=== PATIENT | female | born 1930 | race Caucasian/White ===

== ENCOUNTER 2017-11-05 16:15 | Emergency (ER) | payer MEDICARE ==
[2017-11-05 17:11] VITALS: BP 123/97
[2017-11-05] MEDS ORDERED: cefTRIAXone 1,000 MG VIAL IVPUSH SCH (17:15)
[2017-11-05] MEDS ORDERED: Sodium Chloride 0.9% 10 ML Syringe FLUSH PRN (17:19)
--- NOTE | 2017-11-05 17:37 | EDM.PDOC ---
ED HPI GENERAL MEDICAL PROBLEM - General Chief Complaint: Cardiovascular Problem Stated Complaint: PAIN Time Seen by Provider: 11/05/17 16:15 Source of Information: Reports: Patient, Family History Limitations: Reports: No Limitations - History of Present Illness INITIAL COMMENTS - FREE TEXT/NARRATIVE: c/o weak and dysuria x 4d pt went to clinic to PCP Dr Cardoza, he noted ST at 140 on EKG with SBP 84, however BP 118/72 here, HR is still ST 140 here on EKG with LVH and old IWMI pt alert, denies sxs except dysuria and frequency, no f/c/d, no sob, no n/v, no CP had a UTI 4-5m ago tx by Dr Cardoza denies prior CV problems good appetite, age bfast and lunch today - Related Data Allergies Allergy/AdvReac Type Severity Reaction Status Date / Time ciprofloxacin Allergy Dizziness Verified 11/05/17 16:38 EGGS Allergy Nausea and Uncoded 11/05/17 16:38 Vomiting Home Meds: Home Meds Lisinopril [Prinivil] 5 mg PO DAILY 06/19/13 [History] Methimazole [Tapazole] 15 mg PO DAILY 06/19/13 [History] Omeprazole 20 mg PO BIDAC 06/19/13 [History] Propranolol [Inderal] 20 mg PO TID 06/19/13 [History] Acetaminophen [Tylenol] 1,200 mg PO BID 11/05/17 [History] ED ROS GENERAL - Review of Systems Review Of Systems: See Below Constitutional: Reports: No Symptoms, Weakness, Decreased Appetite. Denies: Fever, Chills HEENT: Reports: No Symptoms Respiratory: Reports: No Symptoms Cardiovascular: Reports: No Symptoms Endocrine: Reports: No Symptoms GI/Abdominal: Reports: No Symptoms : Reports: Dysuria, Frequency, Urgency. Denies: Hematuria Musculoskeletal: Reports: No Symptoms Skin: Reports: No Symptoms Neurological: Reports: No Symptoms Psychiatric: Reports: No Symptoms Hematologic/Lymphatic: Reports: No Symptoms Immunologic: Reports: No Symptoms ED EXAM, GENERAL - Physical Exam Exam: See Below Exam Limited By: No Limitations General Appearance: Alert, WD/WN, No Apparent Distress, Other (alert, pleasant, talkative, NAD despite tachy, nonill, cooperative) Eye Exam: Bilateral Eye: Normal Inspection Ears: Normal External Exam Nose: Normal Inspection, Normal Mucosa, No Blood Throat/Mouth: Normal Inspection, Normal Lips, Normal Teeth, Normal Gums, Normal Oropharynx, Normal Voice, No Airway Compromise Head: Atraumatic, Normocephalic Neck: Normal Inspection, Supple, Non-Tender, Full Range of Motion. No: Lymphadenopathy (R), Lymphadenopathy (L) Respiratory/Chest: No Respiratory Distress, Lungs Clear, Normal Breath Sounds, No Accessory Muscle Use, Chest Non-Tender Cardiovascular: Regular Rate, Rhythm, No Edema, No Gallop, No JVD, No Murmur, No Rub, Tachycardia, Other (slight heave at PMI which is MCL at 6th ICS). No: Gallop/S3, Gallop/S4 GI/Abdominal: Normal Bowel Sounds, Soft, Non-Tender, No Organomegaly, No Distention, No Mass, Other (no flank tender, no suprapubic tender) Back Exam: Normal Inspection, Full Range of Motion, NT Extremities: Normal Inspection, Normal Range of Motion, Non-Tender, No Pedal Edema, Mottled Neurological: Alert, Oriented, Normal Cognition, No Motor/Sensory Deficits Psychiatric: Normal Affect, Normal Mood Skin Exam: Warm, Dry, Intact, Normal Color, No Rash Lymphatic: No Adenopathy Course - Vital Signs Last Recorded V/S: Last Vital Signs Temp 36.4 C 11/05/17 16:20 Pulse 139 H 11/05/17 16:20 Resp 16 11/05/17 16:20 BP 123/97 H 11/05/17 16:20 Pulse Ox 94 L 11/05/17 16:20 - Orders/Labs/Meds Orders: Active Orders 24 hr Category Date Time Status EKG Documentation Completion [RC] ASDIRECTED Care 11/05/17 17:14 Active Chest 1V Frontal [CR] Stat Exams 11/05/17 17:05 Taken CULTURE BLOOD [BC] Stat Lab 11/05/17 17:30 Received Sodium Chloride 0.9% [Normal Saline] 1,000 ml Med 11/05/17 17:45 Active IV ASDIRECTED Sodium Chloride 0.9% [Saline Flush] Med 11/05/17 17:19 Active 10 ml FLUSH ASDIRECTED PRN cefTRIAXone [Rocephin] Med 11/05/17 17:15 Active 1,000 mg IVPUSH Q24H Saline Lock Insert [OM.PC] Routine Oth 11/05/17 17:19 Ordered EKG 12 Lead [EK] Routine Ther 11/05/17 17:13 Ordered Medication Orders Ceftriaxone Sodium (Rocephin) 1,000 mg IVPUSH Q24H [facility] Last Admin: 11/05/17 17:38 Dose: 1,000 mg Sodium Chloride (Normal Saline) 1,000 mls @ 999 mls/hr IV ASDIRECTED LIZ Last Admin: 11/05/17 19:05 Dose: 999 mls/hr Infusion: 11/05/17 18:39 Dose: 999 mls/hr Admin: 11/05/17 17:38 Dose: 999 mls/hr Sodium Chloride (Saline Flush) 10 ml FLUSH ASDIRECTED PRN PRN Reason: Keep Vein Open Labs: Laboratory Tests 11/05/17 11/05/17 11/05/17 Range/Units 17:30 17:30 17:30 WBC 8.3 (4.5-12.0) X10-3/uL RBC 4.47 (3.23-5.20) x10(6)uL Hgb 13.4 (11.5-15.5) g/dL Hct 40.5 (30.0-51.3) % MCV 90.6 (80-96) fL MCH 29.9 (27.7-33.6) pg MCHC 33.0 (32.2-35.4) g/dL RDW 13.8 (11.5-15.5) % Plt Count 255 (125-369) X10(3)uL MPV 8.1 (7.4-10.4) fL Neut % (Auto) 60.4 (46-82) % Lymph % (Auto) 27.8 (13-37) % Wetzel % (Auto) 9.5 (4-12) % Eos % (Auto) 2 (1.0-5.0) % Baso % (Auto) 1 (0-2) % Neut # (Auto) 5.0 (1.6-8.3) # Lymph # (Auto) 2.3 (0.6-5.0) # Wetzel # (Auto) 0.8 (0.0-1.3) # Eos # (Auto) 0.1 (0.0-0.8) # Baso # (Auto) 0.1 (0.0-0.2) # Sodium 143 (135-145) mmol/L Potassium 4.3 (3.5-5.3) mmol/L Chloride 108 (100-110) mmol/L Carbon Dioxide 23 (21-32) mmol/L BUN 29 H (7-18) mg/dL Creatinine 0.9 (0.55-1.02) mg/dL Est Cr Clr Drug Dosing 36.80 mL/min Estimated GFR (MDRD) 60 (>60) BUN/Creatinine Ratio 32.2 H (9-20) Glucose 139 H (80-116) mg/dL Lactic Acid (0.4-2.2) mmol/L Calcium 9.0 (8.6-10.2) mg/dL Magnesium (1.8-2.5) mg/dL Total Bilirubin 0.3 (0.1-1.3) mg/dL AST 20 (5-25) IU/L ALT 23 (12-36) U/L Alkaline Phosphatase 109 (56-112) IU/L Troponin I < 0.017 L (<0.017-0.056) ng/mL C-Reactive Protein 1.3 H (0.5-0.9) mg/dL NT-Pro-B Natriuret Pep 3229 H* (<=450) pg/mL Total Protein 7.4 (6.0-8.0) g/dL Albumin 3.2 (3.2-4.6) g/dL Globulin 4.2 g/dL Albumin/Globulin Ratio 0.8 TSH, Ultra Sensitive 2.83 (0.36-3.74) IU/mL 11/05/17 11/05/17 Range/Units 17:30 17:30 WBC (4.5-12.0) X10-3/uL RBC (3.23-5.20) x10(6)uL Hgb (11.5-15.5) g/dL Hct (30.0-51.3) % MCV (80-96) fL MCH (27.7-33.6) pg MCHC (32.2-35.4) g/dL RDW (11.5-15.5) % Plt Count (125-369) X10(3)uL MPV (7.4-10.4) fL Neut % (Auto) (46-82) % Lymph % (Auto) (13-37) % Wetzel % (Auto) (4-12) % Eos % (Auto) (1.0-5.0) % Baso % (Auto) (0-2) % Neut # (Auto) (1.6-8.3) # Lymph # (Auto) (0.6-5.0) # Wetzel # (Auto) (0.0-1.3) # Eos # (Auto) (0.0-0.8) # Baso # (Auto) (0.0-0.2) # Sodium (135-145) mmol/L Potassium (3.5-5.3) mmol/L Chloride (100-110) mmol/L Carbon Dioxide (21-32) mmol/L BUN (7-18) mg/dL Creatinine (0.55-1.02) mg/dL Est Cr Clr Drug Dosing mL/min Estimated GFR (MDRD) (>60) BUN/Creatinine Ratio (9-20) Glucose (80-116) mg/dL Lactic Acid 1.0 (0.4-2.2) mmol/L Calcium (8.6-10.2) mg/dL Magnesium 1.9 (1.8-2.5) mg/dL Total Bilirubin (0.1-1.3) mg/dL AST (5-25) IU/L ALT (12-36) U/L Alkaline Phosphatase (56-112) IU/L Troponin I (<0.017-0.056) ng/mL C-Reactive Protein (0.5-0.9) mg/dL NT-Pro-B Natriuret Pep (<=450) pg/mL Total Protein (6.0-8.0) g/dL Albumin (3.2-4.6) g/dL Globulin g/dL Albumin/Globulin Ratio TSH, Ultra Sensitive (0.36-3.74) IU/mL Meds: Medications Generic Name Dose Route Start Last Admin Trade Name Freq PRN Reason Stop Dose Admin Ceftriaxone Sodium 1,000 mg 11/05/17 17:15 11/05/17 17:38 Rocephin IVPUSH 1,000 mg Q24H LIZ Administration Sodium Chloride 1,000 mls @ 999 mls/hr 11/05/17 17:45 03/16/18 19:05 Normal Saline IV 999 mls/hr ASDIRECTED LIZ Administration Sodium Chloride 10 ml 11/05/17 17:19 Saline Flush FLUSH ASDIRECTED PRN Keep Vein Open - Re-Assessments/Exams Free Text/Narrative Re-Assessment/Exam: 11/05/17 17:43 CxR, 1V, no infiltrate, possible borderline cardiomegaly, R angle clear, L angle obscured by heart 11/05/17 19:33 no beds available here, d/w Dr Evans hospitalist at [facility] who accepted her in admission to observation bed, HR did decrease to 117 after 1.5 liters altho it is now 138 again, remains sinus, trop neg, inc'd BNP c/w demand ischemia no clinical evidence of sepsis or pyelo, BC x 2 pending here, UC pending at clinic may need an echo, no prior CV hx, yet EKG (no comparison) shows LVH and old IWMI Departure - Departure Time of Disposition: 19:22 Disposition: DC/Tfer to Acute Hospital 02 Reason for Transfer *Q: Other Condition: Good Clinical Impression: Sinus tachycardia, Mild dehydration, Urinary tract infection, CHF exacerbation , Elevated brain natriuretic peptide (BNP) level, Prerenal azotemia, Hyperglycemia Referrals: David Scott MD [Primary Care Provider] - Forms: ED Department Discharge - My Orders Last 24 Hours: My Active Orders 11/05/17 17:05 Chest 1V Frontal [CR] Stat 11/05/17 17:13 EKG 12 Lead [EK] Routine 11/05/17 17:14 EKG Documentation Completion [RC] ASDIRECTED 11/05/17 17:15 cefTRIAXone [Rocephin] 1,000 mg IVPUSH Q24H 11/05/17 17:19 Sodium Chloride 0.9% [Saline Flush] 10 ml FLUSH ASDIRECTED PRN Saline Lock Insert [OM.PC] Routine 11/05/17 17:30 CULTURE BLOOD [BC] Stat 11/05/17 17:45 Sodium Chloride 0.9% [Normal Saline] 1,000 ml IV ASDIRECTED - Assessment/Plan Last 24 Hours: My Active Orders 11/05/17 17:05 Chest 1V Frontal [CR] Stat 11/05/17 17:13 EKG 12 Lead [EK] Routine 11/05/17 17:14 EKG Documentation Completion [RC] ASDIRECTED 11/05/17 17:15 cefTRIAXone [Rocephin] 1,000 mg IVPUSH Q24H 11/05/17 17:19 Sodium Chloride 0.9% [Saline Flush] 10 ml FLUSH ASDIRECTED PRN Saline Lock Insert [OM.PC] Routine 11/05/17 17:30 CULTURE BLOOD [BC] Stat 11/05/17 17:45 Sodium Chloride 0.9% [Normal Saline] 1,000 ml IV ASDIRECTED
[2017-11-05] MEDS: Sodium Chloride 0.9% 1,000 ML IV SCH ×2 (17:38→19:05)
--- NOTE | 2017-11-08 16:23 | CR ---
INDICATION: Tachycardia 140. No chest pain. No shortness of breath. CHEST: Portable AP upright view of the chest, 11/05/2017, was compared with 08/2008 PA view, and revealed the heart to be enlarged. The aorta is tortuous, possibly with some minimal calcification in the arch. Overlying EKG leads are noted. The lungs appear to be somewhat hyperaerated with somewhat flattened diaphragm leaves, suggesting the possibility of COPD - correlate clinically. Slightly heavy markings at the left lung base make it difficult to exclude minimal fibrosis or linear atelectasis or even a minimal patchy bronchopneumonia. No gross consolidating pneumonia or effusion was seen, however. IMPRESSION: 1. No definite acute process, but difficult to exclude minimal patchy bronchopneumonia at the left costophrenic angle - lung base. 2. ASHD with cardiomegaly. 3. Probable COPD. MTDD
== END 2017-11-05 20:25 ==
LOC: FB.ED 16:15
DX: N39.0 Urinary tract infection, site not specified (principal); R00.0 Tachycardia, unspecified; E86.0 Dehydration; I50.9 Heart failure, unspecified; R73.9 Hyperglycemia, unspecified; Z91.012 Allergy to eggs; Z88.1 Allergy status to other antibiotic agents; Z79.899 Other long term (current) drug therapy
CPT/HCPCS: 36415; 71045; 80053; 83605; 83735; 83880; 84443; 84484; 85025; 86140; 87040; 93005; 96361; 96374; 99285; J0696; J7040

== ENCOUNTER 2018-01-18 12:05 | Emergency (ER) | payer MEDICARE ==
--- NOTE | 2018-01-18 12:18 | EDM.PDOC ---
ED HPI GENERAL MEDICAL PROBLEM - General Stated Complaint: DIZZINESS SOB Time Seen by Provider: 01/18/18 12:05 Source of Information: Reports: Patient, Family History Limitations: Reports: No Limitations - History of Present Illness INITIAL COMMENTS - FREE TEXT/NARRATIVE: 87 y.o.w.f came with her son due to gen body ache, h/a chest pain, back pain, neck pain etc. She is scheduled for a electrophysiological study tomorrow. Reason? No N/V/D no chest pain. She just does not fee 'right" No family was in the room. Pt is a poor historian. BP 160/92 RR 18 Pulse ox 98% on RA pulse 77 Temp 36.6 Onset Date: 01/18/18 Onset Time: 06:00 Duration: Hour(s):, Intermittent, Improving Location: Reports: Generalized Quality: Reports: Ache, Dull Severity: Mild Improves with: Reports: Rest Worsens with: Reports: Movement Context: Reports: Other (Pt as a fib.) Associated Symptoms: Reports: No Other Symptoms - Related Data Allergies Allergy/AdvReac Type Severity Reaction Status Date / Time ciprofloxacin Allergy Dizziness Verified 01/18/18 12:26 EGGS Allergy Nausea and Uncoded 01/18/18 12:26 Vomiting Home Meds: Home Meds Methimazole [Tapazole] 15 mg PO DAILY 06/19/13 [History] Omeprazole 20 mg PO BIDAC 06/19/13 [History] Propranolol [Inderal] 20 mg PO TID 06/19/13 [History] Acetaminophen [Tylenol] 1,200 mg PO BID 11/05/17 [History] Past Medical History HEENT History: Reports: Cataract, Hard of Hearing, Impaired Vision Cardiovascular History: Reports: High Cholesterol Genitourinary History: Reports: UTI, Recurrent Other Genitourinary History: Pt has had frequent urinary tract infections. [employer] History: Reports: Musculoskeletal History: Reports: Arthritis, Osteoarthritis Endocrine/Metabolic History: Reports: Hyperthyroidism, Hypothyroidism Oncologic (Cancer) History: Reports: Breast - Infectious Disease History Infectious Disease History: Reports: Chicken Pox, Measles, Mumps, Pertussis ( Whooping Cough) - Past Surgical History Female Surgical History: Reports: Breast Biopsy, Hysterectomy, Mastectomy Other Female Surgeries/Procedures: Pt had mastecomy 1996 and in 2000. Social & Family History - Caffeine Use Caffeine Use: Reports: Coffee ED ROS GENERAL - Review of Systems Review Of Systems: See Below Constitutional: Reports: No Symptoms HEENT: Reports: No Symptoms Respiratory: Reports: Shortness of Breath Cardiovascular: Reports: Palpitations Endocrine: Reports: No Symptoms GI/Abdominal: Reports: No Symptoms : Reports: No Symptoms Musculoskeletal: Reports: No Symptoms Skin: Reports: No Symptoms Neurological: Reports: No Symptoms Psychiatric: Reports: No Symptoms Hematologic/Lymphatic: Reports: No Symptoms Immunologic: Reports: No Symptoms ED EXAM, GENERAL - Physical Exam Exam: See Below Exam Limited By: No Limitations General Appearance: Alert, WD/WN, No Apparent Distress Eye Exam: Bilateral Eye: Normal Inspection Ears: Normal External Exam, Normal Canal Ear Exam: Bilateral Ear: Auricle Normal Nose: Normal Inspection, Normal Mucosa, No Blood Throat/Mouth: Normal Inspection, Normal Lips, Normal Gums, Normal Voice, No Airway Compromise Head: Atraumatic, Normocephalic Neck: Normal Inspection, Supple, Non-Tender Respiratory/Chest: No Respiratory Distress, Lungs Clear (poor insp effort), No Accessory Muscle Use, Chest Non-Tender Cardiovascular: Normal Peripheral Pulses, Regular Rate, Rhythm Peripheral Pulses: 1+: Brachial (L) GI/Abdominal: Normal Bowel Sounds, Soft, Non-Tender, No Organomegaly, No Distention, No Abnormal Bruit, No Mass (Female) Exam: Deferred Rectal (Female) Exam: Deferred Back Exam: Normal Inspection, Full Range of Motion Extremities: Normal Inspection, Normal Range of Motion, Non-Tender, No Pedal Edema, Normal Capillary Refill Neurological: Alert, Oriented, CN II-XII Intact, Normal Cognition, Other (pt is wheelchair bound) Psychiatric: Normal Affect, Normal Mood Skin Exam: Warm, Dry, Intact, Normal Color, No Rash Lymphatic: No Adenopathy EKG INTERPRETATION EKG Date: 01/18/18 Time: 12:35 Rhythm: NSR Rate (Beats/Min): 68 [place]: Normal P-Wave: Present QRS: Normal ST-T: Normal QT: Normal Comparison: NA - No Prior EKG Course - Vital Signs Text/Narrative:: 87 y.o.w.f came with her son due to gen body ache, h/a chest pain, back pain, neck pain etc. She is scheduled for a electrophysiological study tomorrow. Reason? No N/V/D no chest pain. She just does not fee 'right" No family was in the room. Pt is a poor historian. BP 160/92 RR 18 Pulse ox 98% on RA pulse 77 Temp 36.6 PE: 87 y.o.w.f came to the ed with her son because she "does not feel right" Scheduled for an electophysiological study. No Nystagmus labs: CBC nl BUN 24 Cr 0.8 GFR 60 BUN/CR ration elevated BNP 1988 Glc 114 Imaging: CXR: NAD Impression: Nonspecific complains, nonspecific dizziness Tx: None Reexam: Pt felt fine on D/C, was ambulating fine with walker. Plan: D/C with instructions Last Recorded V/S: Last Vital Signs Temp 36.4 C 01/18/18 15:20 Pulse 70 01/18/18 15:20 Resp 18 01/18/18 15:20 BP 157/92 H 01/18/18 15:20 Pulse Ox 100 01/18/18 15:20 - Orders/Labs/Meds Orders: Active Orders 24 hr Category Date Time Status UA W/MICROSCOPIC [URIN] Stat Lab 01/18/18 13:50 Ordered EKG 12 Lead [EK] Routine Ther 01/18/18 12:18 Ordered Labs: Laboratory Tests 01/18/18 01/18/18 01/18/18 Range/Units 13:00 13:00 13:00 WBC 7.3 (4.5-12.0) X10-3/uL RBC 4.05 (3.23-5.20) x10(6)uL Hgb 12.4 (11.5-15.5) g/dL Hct 38.0 (30.0-51.3) % MCV 93.7 (80-96) fL MCH 30.6 (27.7-33.6) pg MCHC 32.7 (32.2-35.4) g/dL RDW 13.2 (11.5-15.5) % Plt Count 167 (125-369) X10(3)uL MPV 8.2 (7.4-10.4) fL Neut % (Auto) 57.9 (46-82) % Lymph % (Auto) 30.8 (13-37) % Meagher % (Auto) 9.5 (4-12) % Eos % (Auto) 1 (1.0-5.0) % Baso % (Auto) 1 (0-2) % Neut # (Auto) 4.2 (1.6-8.3) # Lymph # (Auto) 2.3 (0.6-5.0) # Meagher # (Auto) 0.7 (0.0-1.3) # Eos # (Auto) 0.1 (0.0-0.8) # Baso # (Auto) 0.0 (0.0-0.2) # Sodium 141 (135-145) mmol/L Potassium 4.1 (3.5-5.3) mmol/L Chloride 107 (100-110) mmol/L Carbon Dioxide 24 (21-32) mmol/L BUN 23 H (7-18) mg/dL Creatinine 0.9 (0.55-1.02) mg/dL Est Cr Clr Drug Dosing TNP Estimated GFR (MDRD) 60 (>60) BUN/Creatinine Ratio 25.6 H (9-20) Glucose 114 (80-116) mg/dL Calcium 8.8 (8.6-10.2) mg/dL NT-Pro-B Natriuret Pep 1989 H* (<=450) pg/mL Urine Color (YELLOW) Urine Appearance (CLEAR) Urine pH (5.0-6.5) Ur Specific Hazard (1.010-1.025) Urine Protein (NEGATIVE) mg/dL Urine Glucose (UA) (NEGATIVE) mg/dL Urine Ketones (NEGATIVE) mg/dL Urine Occult Blood (NEGATIVE) Urine Nitrite (NEGATIVE) Urine Bilirubin (NEGATIVE) Urine Urobilinogen (NEGATIVE) mg/dL Ur Leukocyte Esterase (NEGATIVE) Urine WBC (0) Ur Squamous Epith Cells (NS,R,O) Urine Bacteria (NS) 01/18/18 Range/Units 13:50 WBC (4.5-12.0) X10-3/uL RBC (3.23-5.20) x10(6)uL Hgb (11.5-15.5) g/dL Hct (30.0-51.3) % MCV (80-96) fL MCH (27.7-33.6) pg MCHC (32.2-35.4) g/dL RDW (11.5-15.5) % Plt Count (125-369) X10(3)uL MPV (7.4-10.4) fL Neut % (Auto) (46-82) % Lymph % (Auto) (13-37) % Meagher % (Auto) (4-12) % Eos % (Auto) (1.0-5.0) % Baso % (Auto) (0-2) % Neut # (Auto) (1.6-8.3) # Lymph # (Auto) (0.6-5.0) # Meagher # (Auto) (0.0-1.3) # Eos # (Auto) (0.0-0.8) # Baso # (Auto) (0.0-0.2) # Sodium (135-145) mmol/L Potassium (3.5-5.3) mmol/L Chloride (100-110) mmol/L Carbon Dioxide (21-32) mmol/L BUN (7-18) mg/dL Creatinine (0.55-1.02) mg/dL Est Cr Clr Drug Dosing Estimated GFR (MDRD) (>60) BUN/Creatinine Ratio (9-20) Glucose (80-116) mg/dL Calcium (8.6-10.2) mg/dL NT-Pro-B Natriuret Pep (<=450) pg/mL Urine Color Yellow (YELLOW) Urine Appearance Clear (CLEAR) Urine pH 5.0 (5.0-6.5) Ur Specific Hazard 1.010 (1.010-1.025) Urine Protein Negative (NEGATIVE) mg/dL Urine Glucose (UA) Normal (NEGATIVE) mg/dL Urine Ketones Negative (NEGATIVE) mg/dL Urine Occult Blood Negative (NEGATIVE) Urine Nitrite Negative (NEGATIVE) Urine Bilirubin Negative (NEGATIVE) Urine Urobilinogen Normal (NEGATIVE) mg/dL Ur Leukocyte Esterase Negative (NEGATIVE) Urine WBC 0-5 (0) Ur Squamous Epith Cells Few H (NS,R,O) Urine Bacteria Few H (NS) Departure - Departure Time of Disposition: 14:46 Disposition: Home, Self-Care 01 Condition: Good Clinical Impression: Dizziness, nonspecific Instructions: Dizziness, [id number] Referrals: David Scott MD [Primary Care Provider] - Forms: ED Department Discharge Additional Instructions: Please cont your current meds, please f/u with your Doctor tomorrow as scheduled , please come back if your symptoms get worse acutely. - My Orders Last 24 Hours: My Active Orders 01/18/18 12:18 EKG 12 Lead [EK] Routine 01/18/18 13:50 UA W/MICROSCOPIC [URIN] Stat - Assessment/Plan Last 24 Hours: My Active Orders 01/18/18 12:18 EKG 12 Lead [EK] Routine 01/18/18 13:50 UA W/MICROSCOPIC [URIN] Stat
--- NOTE | 2018-01-18 13:25 | CR ---
INDICATION: Short of breath. CHEST: AP upright view of the chest in a wheelchair was obtained 01/18/2018 and compared with 11/05/2017 and 04/23/2009, again revealing the heart to be enlarged in appearance. The aorta is somewhat tortuous with calcification in the arch. Evidence of surgery is noted in the area of the right axilla and right breast. Markings appear similar to the previous study with no definite active infiltrate or effusion. An appearance of hyperaeration and flattened diaphragm leaves suggest COPD. There is question of a mass behind the heart, which could represent a moderately large to large fixed hiatal hernia or other mass and should be correlated clinically. IMPRESSION: 1. No definite acute process but difficult to exclude patchy bronchopneumonia due to heavy markings at the lung bases, partly on the basis of poor inspiration. 2. COPD. 3. Pulmonary fibrosis. 4. ASHD with cardiomegaly. 5. There is suggestion of a mass behind the heart, similar to previous examination, which may represent a large fixed hiatal hernia or other mass and should be correlated clinically. MTDD
[2018-01-18 15:35] VITALS: BP 157/92
== END 2018-01-18 15:20 | disposition home or self-care (01) ==
LOC: FB.ED 12:05
DX: R42 Dizziness and giddiness (principal); Z88.8 Allergy status to other drugs, medicaments and biological substances; Z91.012 Allergy to eggs; Z79.899 Other long term (current) drug therapy
CPT/HCPCS: 36415; 71045; 80048; 81001; 83880; 85025; 93005; 99285

== ENCOUNTER 2019-10-13 13:32 | Inpatient (IN) | payer MEDICARE ==
[2019-10-13] MEDS ORDERED: cefTRIAXone 1 GM in Sodium Chloride 0.9% 50 ML IV SCH (15:00)
[2019-10-13] MEDS ORDERED: Carboxymethylcellulose Sodium 0.5% Ophth Soln 15 ML Bottle EYEBOTH PRN (15:02)
--- NOTE | 2019-10-13 15:11 | PCM.HP.2 ---
H&P History of Present Illness - General Date of Service: 10/13/19 Admit Problem/Dx: Admission Diagnosis/Problem Admission Diagnosis/Problem Atrial fibrillation Source of Information: Patient, Old Records History Limitations: Reports: No Limitations - History of Present Illness Initial Comments - Free Text/Narative: This is an 88-year-old female patient over from the clinic from [facility] physician's emergency medicine physician assistant for pneumonia and rapid atrial fibrillation. The patient states she has been sick for about 2 months getting worse. She was seen in the clinic early this week and diagnosed with pneumonia and put on doxycycline. She came back today she was getting worse and they felt she should be admitted. Her EKG showed rapid A. fib with RVR. Patient states she feels dizzy, weak, palpitations. She denies fever, is chills, runny nose, sore throat, cough. She is short of breath which is more so when she lays down and exert yourself. She says she had a temperature in the clinic but has not really noticed. She had ablation of atrial flutter 2 years ago. Not on any anticoagulation. - Related Data Allergies/Adverse Reactions: Allergies Allergy/AdvReac Type Severity Reaction Status Date / Time ciprofloxacin Allergy Rash Verified 10/13/19 14:55 EGGS Allergy Other Uncoded 10/13/19 14:55 Home Medications: Home Meds Methimazole [Tapazole] 15 mg PO DAILY 06/19/13 [History] Omeprazole 20 mg PO BIDAC 06/19/13 [History] Acetaminophen [Tylenol Arthritis] 650 mg PO BID 10/13/19 [History] Acetaminophen with Codeine [Tylenol with Codeine #3 Tablet] 1 tab PO Q6H PRN [History] Carboxymethylcellulose Sodium [Refresh Tears] 1 drop EYEBOTH TID PRN 10/13/19 [ History] Doxycycline Hyclate 100 mg PO BID 10/13/19 [History] Furosemide [Lasix] 20 mg PO DAILY 10/13/19 [History] Loratadine [Claritin] 10 mg PO DAILY 10/13/19 [History] Mineral Oil/Petrolatum,White [Refresh P.M.] 1 applic EYEBOTH BEDTIME 10/13/19 [ History] Propranolol [Inderal] 80 mg PO BID 10/13/19 [History] Vit C/E/Zn/Coppr/Lutein/Zeaxan [Preservision Areds 2 Softgel] 1 cap PO DAILY [History] amLODIPine [Norvasc] 2.5 mg PO DAILY 10/13/19 [History] lisinopriL [Lisinopril] 10 mg PO DAILY 10/13/19 [History] Past Medical History HEENT History: Reports: Cataract, Hard of Hearing, Impaired Vision Cardiovascular History: Reports: High Cholesterol Respiratory History: Reports: None Genitourinary History: Reports: UTI, Recurrent Other Genitourinary History: Pt has had frequent urinary tract infections. 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 Social & Family History - Caffeine Use Caffeine Use: Reports: Coffee H&P Review of Systems - Review of Systems: Review Of Systems: See Below General: Reports: Weakness, Fatigue HEENT: Reports: No Symptoms Pulmonary: Reports: Shortness of Breath. Denies: Wheezing, Sputum, Hemoptysis Cardiovascular: Reports: Dyspnea on Exertion. Denies: Chest Pain, Edema Gastrointestinal: Reports: No Symptoms Genitourinary: Reports: Incontinence Skin: Reports: No Symptoms Psychiatric: Reports: No Symptoms Neurological: Reports: No Symptoms Hematologic/Lymphatic: Reports: No Symptoms Immunologic: Reports: No Symptoms Exam - Exam Exam: See Below - Vital Signs Vital Signs: Last Vital Signs Temp 97.8 F 10/13/19 13:55 Pulse 117 H 10/13/19 13:55 Resp 16 10/13/19 13:55 BP 134/85 10/13/19 13:55 Pulse Ox 96 10/13/19 13:55 Weight: 144 lb 5 oz - Exam General: Alert, Oriented, Cooperative HEENT: Hearing Intact, Mucosa Moist & [place], Posterior Pharynx Clear, TMs Clear Neck: Supple, Trachea Midline. No: JVD, Thyromegaly Lungs: Normal Respiratory Effort, Crackles (Left base) Cardiovascular: Irregular Rhythm, Tachycardia GI/Abdominal Exam: Normal Bowel Sounds, Soft, Non-Tender, No Organomegaly, No Distention, No Abnormal Bruit, No Mass Back Exam: Normal Inspection, Full Range of Motion Extremities: Pedal Edema Skin: Warm, Dry, Intact Neurological: Normal Speech, Normal Tone Psychiatric: Alert, Normal Affect, Normal Mood Sepsis Event Note - Focused Exam Vital Signs: Vital Signs Temp Pulse Resp BP Pulse Ox 10/13/19 13:55 97.8 F 117 H 16 134/85 96 Date Exam was Performed: 10/13/19 Time Exam was Performed: 15:04 - Problem List (1) Pneumonia SNOMED Code(s): 645816994 ICD Code: J18.9 - PNEUMONIA, UNSPECIFIED ORGANISM Status: Acute Current Visit: Yes (2) Rapid atrial fibrillation SNOMED Code(s): 280861900 ICD Code: I48.91 - UNSPECIFIED ATRIAL FIBRILLATION Status: Acute Current Visit: Yes (3) Palliative care status SNOMED Code(s): 928896770 ICD Code: Z51.5 - ENCOUNTER FOR PALLIATIVE CARE Status: Acute Current Visit: Yes Problem List Initiated/Reviewed/Updated: Yes Orders Last 24hrs: Active Orders 24 hr Category Date Time Status Patient Status [ADT] Routine ADT 10/13/19 14:56 Ordered Ambulate [RC] ASDIRECTED Care 10/13/19 14:56 Ordered Cardiac Monitoring [RC] CONTINUOUS Care 10/13/19 14:57 Ordered EKG Documentation Completion [RC] ASDIRECTED Care 10/13/19 15:04 Ordered Intake and Output [RC] QSHIFT Care 10/13/19 14:57 Ordered May Shower [RC] ASDIRECTED Care 10/13/19 14:56 Ordered Oxygen Therapy [RC] PRN Care 10/13/19 14:56 Ordered Up With Assistance [RC] ASDIRECTED Care 10/13/19 14:56 Ordered VTE/DVT Education [RC] Per Unit Routine Care 10/13/19 14:56 Ordered Vital Signs [RC] Q4HWA Care 10/13/19 14:56 Ordered Regular Diet [DIET] Diet 10/13/19 Dinner Ordered CBC WITH AUTO DIFF [HEME] Routine Lab 10/13/19 14:56 Ordered COMPREHENSIVE METABOLIC PN,CMP [CHEM] Routine Lab 10/13/19 14:56 Ordered CULTURE BLOOD [BC] Urgent Lab 10/13/19 15:00 Ordered CULTURE BLOOD [BC] Urgent Lab 10/13/19 15:00 Ordered INR,PT,PROTHROMBIN TIME [COAG] Routine Lab 10/13/19 14:56 Ordered PRO B-TYPE NATRIUR PEPT,BNPPRO [CHEM] Routine Lab 10/13/19 15:04 Ordered TROPONIN I [CHEM] Routine Lab 10/13/19 14:56 Ordered Acetaminophen [Tylenol Arthritis Pain] Med 10/13/19 21:00 Ordered 650 mg PO BID Acetaminophen/Codeine [Tylenol with Codeine No.3 300MG/ Med 10/13/19 15:02 Ordered 30MG] 1 tab PO Q6H PRN Azithromycin [Zithromax] 250 mg Med 10/14/19 15:15 Ordered Sodium Chloride 0.9% [Normal Saline] 250 ml IV Q24H Azithromycin [Zithromax] 500 mg Med 10/13/19 14:56 Ordered Sodium Chloride 0.9% [Normal Saline (AdvBag)] 250 ml IV ONETIME Carboxymethylcellulose Sodium [Refresh Tears 0.5%] Med 10/13/19 15:02 Ordered 1 drop EYEBOTH TID PRN Enoxaparin [Lovenox] Med 10/13/19 15:00 Ordered 30 mg SUBCUT Q24H Furosemide [Lasix] Med 10/14/19 09:00 Ordered 20 mg PO DAILY Loratadine [Claritin] Med 10/14/19 09:00 Ordered 10 mg PO DAILY Omeprazole [Omeprazole] Med 10/13/19 17:30 Ordered 20 mg PO BIDAC Ondansetron [Zofran ODT] Med 10/13/19 14:56 Ordered 4 mg PO Q4H PRN Propranolol [Inderal] Med 10/13/19 21:00 Ordered 80 mg PO BID Sodium Chloride 0.9% [Saline Flush] Med 10/13/19 14:56 Ordered 10 ml FLUSH ASDIRECTED PRN Vit C/E/Zn/Coppr/Lutein/Zeaxan [Preservision Areds 2 Med 10/14/19 09:00 Ordered Softgel] 1 cap PO DAILY amLODIPine [Norvasc] Med 10/14/19 09:00 Ordered 2.5 mg PO DAILY cefTRIAXone [Rocephin] 1 gm Med 10/13/19 15:00 Ordered Sodium Chloride 0.9% [Normal Saline] 50 ml IV Q24H lisinopriL [Prinivil] Med 10/14/19 09:00 Ordered 10 mg PO DAILY methIMAzole Med 10/14/19 09:00 Ordered 15 mg PO DAILY Blood Culture x2 Reflex Set [OM.PC] Urgent Oth 10/13/19 14:56 Ordered Saline Lock Insert [OM.PC] Routine Oth 10/13/19 14:56 Ordered Sequential Compression Device [OM.PC] Per Unit Routine Oth 10/13/19 14:57 Ordered Resuscitation Status Routine Resus Stat 10/13/19 14:56 Ordered EKG 12 Lead [EK] Routine Ther 10/13/19 15:04 Ordered Medication Orders Acetaminophen (Tylenol Arthritis Pain) 650 mg PO BID LIZ Acetaminophen/Codeine Phosphate (Tylenol With Codeine No.3 300mg/30mg) 1 tab PO Q6H PRN PRN Reason: MODERATE PAIN Amlodipine Besylate (Norvasc) 2.5 mg PO DAILY [facility] Artificial Tears (Refresh Tears 0.5%) ml EYEBOTH TID PRN PRN Reason: Dry Eyes Enoxaparin Sodium (Lovenox) 30 mg SUBCUT Q24H LIZ Furosemide (Lasix) 20 mg PO DAILY [facility] Azithromycin 500 mg/ Sodium (Chloride) 250 mls @ 250 mls/hr IV ONETIME ONE Stop: 10/13/19 15:55 Ceftriaxone Sodium 1 gm/ (Sodium Chloride) 50 mls @ 200 mls/hr IV Q24H [facility] Azithromycin 250 mg/ Sodium (Chloride) 250 mls @ 250 mls/hr IV Q24H [facility] Stop: 10/17/19 16:14 Lisinopril (Prinivil) 10 mg PO DAILY [facility] Loratadine (Claritin) 10 mg PO DAILY [facility] Methimazole (Methimazole) 15 mg PO DAILY [facility] Non-Formulary Medication (Omeprazole [Omeprazole]) 20 mg PO BIDAC [facility] Non-Formulary Medication (Vit C/E/Zn/Coppr/Lutein/Zeaxan [Preservision Areds 2 Softgel]) 1 cap PO DAILY [facility] Ondansetron HCl (Zofran Odt) 4 mg PO Q4H PRN PRN Reason: nausea, able to take PO Propranolol HCl (Inderal) 80 mg PO BID [facility] Sodium Chloride (Saline Flush) 10 ml FLUSH ASDIRECTED PRN PRN Reason: Keep Vein Open Assessment/Plan Comment:: 1. Admit to inpatient 2. Rocephin and Zithromax IV for pneumonia 3. O2 to keep sats greater than 90% and telemetry 4. Recheck CBC, BMP, CMP, INR, blood cultures, troponin, EKG 5. Lovenox and SCD for DVT prophylaxis 6. Regular diet and up ad mc. Ambulate. 7. Patient wishes to be a DNR/DNI
[2019-10-13] MEDS ORDERED: Azithromycin 500 MG in Sodium Chloride 0.9% 250 ML IV ONE (15:15)
[2019-10-13] MEDS: cefTRIAXone 1 GM Vial IVPUSH SCH (15:56)
[2019-10-13] MEDS: Diltiazem IR 60 MG Tab PO SCH ×2 (15:59→21:09)
[2019-10-13] MEDS: Sodium Chloride 0.9% 10 ML Syringe FLUSH PRN (16:00)
[2019-10-13] MEDS: Enoxaparin 40 MG/0.4 ML Syringe SUBCUT SCH (16:32)
[2019-10-13] MEDS: Pantoprazole 40 MG Tab.CR PO SCH (16:33)
[2019-10-13] MEDS: Acetaminophen/Codeine 300-30 MG Tab PO PRN (17:08)
[2019-10-13] MEDS: Ondansetron 4 MG Tab.DIS PO PRN (17:38)
[2019-10-13] MEDS: Propranolol 40 MG Tab PO SCH (21:09)
[2019-10-13] MEDS: Acetaminophen 650 MG Tab.ER PO SCH (21:09)
[2019-10-14] MEDS: Diltiazem IR 60 MG Tab PO SCH (03:20)
[2019-10-14] MEDS: Pantoprazole 40 MG Tab.CR PO SCH ×2 (06:06→17:21)
[2019-10-14] MEDS: Propranolol 40 MG Tab PO SCH ×2 (08:13→21:20)
[2019-10-14] MEDS: Methimazole 5 MG Tab PO SCH (08:13)
[2019-10-14] MEDS: Furosemide 20 MG Tab PO SCH (08:13)
[2019-10-14] MEDS: Lutein/Minerals/Vitamin C/Vitamin E Acetate Cap PO SCH (08:14)
[2019-10-14] MEDS: Lisinopril 10 MG Tab PO SCH (08:14)
[2019-10-14] MEDS: Acetaminophen 650 MG Tab.ER PO SCH ×2 (08:18→21:21)
--- NOTE | 2019-10-14 08:27 | PCM.PN ---
- General Info Date of Service: 10/14/19 Admission Dx/Problem (Free Text): Patient states she feels better today. She says she is a little dizzy with breakfast. She denies any chest pain, palpitations, shortness of breath, cough, wheezing, fevers, chills, runny nose. - Patient Data Vitals - Most Recent: Last Vital Signs Temp 98.1 F 10/14/19 03:41 Pulse 104 H 10/14/19 03:41 Resp 18 10/14/19 03:41 BP 90/60 10/14/19 08:14 Pulse Ox 93 L 10/14/19 03:41 Weight - Most Recent: 144 lb 5 oz I&O - Last 24 Hours: Intake & Output 10/13/19 10/14/19 10/14/19 22:59 06:59 14:59 Intake Total 397 100 Output Total 125 50 Balance 272 50 Lab Results Last 24 Hours: Laboratory Results - last 24 hr 10/13/19 10/13/19 10/13/19 Range/Units 15:11 15:11 15:11 WBC 8.8 (4.5-12.0) X10-3/uL RBC 3.82 (3.23-5.20) x10(6)uL Hgb 11.9 (11.5-15.5) g/dL Hct 35.8 (30.0-51.3) % MCV 93.7 (80-96) fL MCH 31.3 (27.7-33.6) pg MCHC 33.4 (32.2-35.4) g/dL RDW 14.1 (11.5-15.5) % Plt Count 236 (125-369) X10(3)uL MPV 7.9 (7.4-10.4) fL Neut % (Auto) 55.4 (46-82) % Lymph % (Auto) 33.3 (13-37) % [place]ary % (Auto) 9.5 (4-12) % Eos % (Auto) 1 (1.0-5.0) % Baso % (Auto) 1 (0-2) % Neut # (Auto) 5.0 (1.6-8.3) # Lymph # (Auto) 2.9 (0.6-5.0) # Geary # (Auto) 0.8 (0.0-1.3) # Eos # (Auto) 0.1 (0.0-0.8) # Baso # (Auto) 0.0 (0.0-0.2) # PT 11.6 H (9.0-11.1) sec INR 1.20 (1.00-1.24) Sodium 144 (135-145) mmol/L Potassium 3.7 (3.5-5.3) mmol/L Chloride 108 (100-110) mmol/L Carbon Dioxide 25 (21-32) mmol/L BUN 22 H (7-18) mg/dL Creatinine 1.0 (0.55-1.02) mg/dL Est Cr Clr Drug Dosing 34.87 mL/min Estimated GFR (MDRD) 53 L (>60) BUN/Creatinine Ratio 22.0 H (9-20) Glucose 131 H (80-116) mg/dL Calcium 8.9 (8.6-10.2) mg/dL Total Bilirubin 1.1 (0.1-1.3) mg/dL AST 32 H D (5-25) IU/L ALT 31 D (12-36) U/L Alkaline Phosphatase 152 H (56-112) IU/L Troponin I (4.0-60.3) pg/mL NT-Pro-B Natriuret Pep (<=450) pg/mL Total Protein 7.4 (6.0-8.0) g/dL Albumin 3.1 L (3.2-4.6) g/dL Globulin 4.3 g/dL Albumin/Globulin Ratio 0.7 10/13/19 10/13/19 Range/Units 15:11 15:11 WBC (4.5-12.0) X10-3/uL RBC (3.23-5.20) x10(6)uL Hgb (11.5-15.5) g/dL Hct (30.0-51.3) % MCV (80-96) fL MCH (27.7-33.6) pg MCHC (32.2-35.4) g/dL RDW (11.5-15.5) % Plt Count (125-369) X10(3)uL MPV (7.4-10.4) fL Neut % (Auto) (46-82) % Lymph % (Auto) (13-37) % [place] % (Auto) (4-12) % Eos % (Auto) (1.0-5.0) % Baso % (Auto) (0-2) % Neut # (Auto) (1.6-8.3) # Lymph # (Auto) (0.6-5.0) # Geary # (Auto) (0.0-1.3) # Eos # (Auto) (0.0-0.8) # Baso # (Auto) (0.0-0.2) # PT (9.0-11.1) sec INR (1.00-1.24) Sodium (135-145) mmol/L Potassium (3.5-5.3) mmol/L Chloride (100-110) mmol/L Carbon Dioxide (21-32) mmol/L BUN (7-18) mg/dL Creatinine (0.55-1.02) mg/dL Est Cr Clr Drug Dosing mL/min Estimated GFR (MDRD) (>60) BUN/Creatinine Ratio (9-20) Glucose (80-116) mg/dL Calcium (8.6-10.2) mg/dL Total Bilirubin (0.1-1.3) mg/dL AST (5-25) IU/L ALT (12-36) U/L Alkaline Phosphatase (56-112) IU/L Troponin I 13.0 (4.0-60.3) pg/mL NT-Pro-B Natriuret Pep 37196 H* (<=450) pg/mL Total Protein (6.0-8.0) g/dL Albumin (3.2-4.6) g/dL Globulin g/dL Albumin/Globulin Ratio Med Orders - Current: Current Medications Acetaminophen (Tylenol Arthritis Pain) 650 mg PO BID [facility] Last Admin: 10/14/19 08:18 Dose: 650 mg Acetaminophen/Codeine Phosphate (Tylenol With Codeine No.3 300mg/30mg) 1 tab PO Q6H PRN PRN Reason: MODERATE PAIN Last Admin: 10/13/19 17:08 Dose: 1 tab Artificial Tears (Refresh Tears 0.5%) 0 ml EYEBOTH TID PRN PRN Reason: Dry Eyes Ceftriaxone Sodium (Rocephin) 1 gm IVPUSH Q24H [facility] Last Admin: 10/13/19 15:56 Dose: 1 gm Diltiazem HCl (Cardizem Cd) 180 mg PO DAILY [facility] Enoxaparin Sodium (Lovenox) 40 mg SUBCUT Q24H [facility] Last Admin: 10/13/19 16:32 Dose: 40 mg Furosemide (Lasix) 20 mg PO DAILY [facility] Last Admin: 10/14/19 08:13 Dose: 20 mg Azithromycin 250 mg/ Sodium (Chloride) 250 mls @ 250 mls/hr IV Q24H [facility] Stop: 10/17/19 16:59 Lisinopril (Prinivil) 10 mg PO DAILY [facility] Last Admin: 10/14/19 08:14 Dose: 10 mg Loratadine (Claritin) 10 mg PO DAILY PRN PRN Reason: ALLERGIES Methimazole (Methimazole) 15 mg PO DAILY [facility] Last Admin: 10/14/19 08:13 Dose: 15 mg Ondansetron HCl (Zofran Odt) 4 mg PO Q4H PRN PRN Reason: nausea, able to take PO Last Admin: 10/13/19 17:38 Dose: 4 mg Pantoprazole Sodium (Protonix) 40 mg PO BID@0600,1700 [facility] Last Admin: 10/14/19 06:06 Dose: 40 mg Propranolol HCl (Inderal) 80 mg PO BID [facility] Last Admin: 10/14/19 08:13 Dose: 80 mg Sodium Chloride (Saline Flush) 10 ml FLUSH ASDIRECTED PRN PRN Reason: Keep Vein Open Last Admin: 10/13/19 16:00 Dose: 10 ml Vit C/Vit E/Zinc/Copper/Lutein (Ocuvite Lutein) 1 each PO DAILY [facility] Last Admin: 10/14/19 08:14 Dose: 1 each Warfarin Sodium (Coumadin) 5 mg PO DAILY@1600 [facility] Discontinued Medications Amlodipine Besylate (Norvasc) 2.5 mg PO DAILY [facility] Diltiazem HCl (Cardizem) 60 mg PO Q6H [facility] Last Admin: 10/14/19 03:20 Dose: 60 mg Azithromycin 500 mg/ Sodium (Chloride) 250 mls @ 250 mls/hr IV ONETIME ONE Stop: 10/13/19 16:14 Last Admin: 10/13/19 15:59 Dose: 250 mls/hr - Exam General: Alert, Oriented Lungs: Clear to Auscultation, Normal Respiratory Effort Cardiovascular: Regular Rate, Irregular Rhythm. No: Murmurs Extremities: Pedal Edema Psy/Mental Status: Alert, Normal Affect, Normal Mood Sepsis Event Note - Evaluation Sepsis Screening Result: No Definite Risk - Focused Exam Vital Signs: Vital Signs Temp Pulse Resp BP BP Pulse Ox 10/14/19 08:14 90/60 10/14/19 03:41 98.1 F 104 H 18 115/73 93 L 10/14/19 00:00 98.6 F 16 91/55 L 92 L Date Exam was Performed: 10/14/19 Time Exam was Performed: 08:25 - Problem List & Annotations (1) Pneumonia SNOMED Code(s): 981167395 Code(s): J18.9 - PNEUMONIA, UNSPECIFIED ORGANISM Status: Acute Current Visit: Yes (2) Rapid atrial fibrillation SNOMED Code(s): 404884745 Code(s): I48.91 - UNSPECIFIED ATRIAL FIBRILLATION Status: Acute Current Visit: Yes (3) Palliative care status SNOMED Code(s): 319378321 Code(s): Z51.5 - ENCOUNTER FOR PALLIATIVE CARE Status: Acute Current Visit: Yes - Problem List Review Problem List Initiated/Reviewed/Updated: Yes - My Orders Last 24 Hours: My Active Orders 10/13/19 14:56 Patient Status [ADT] Routine Ambulate [RC] ASDIRECTED May Shower [RC] ASDIRECTED Oxygen Therapy [RC] PRN Up With Assistance [RC] ASDIRECTED VTE/DVT Education [RC] Per Unit Routine Vital Signs [RC] QSHIFT Ondansetron [Zofran ODT] 4 mg PO Q4H PRN Sodium Chloride 0.9% [Saline Flush] 10 ml FLUSH ASDIRECTED PRN Blood Culture x2 Reflex Set [OM.PC] Urgent Saline Lock Insert [OM.PC] Routine Resuscitation Status Routine 10/13/19 14:57 Cardiac Monitoring [RC] CONTINUOUS Sequential Compression Device [OM.PC] Per Unit Routine 10/13/19 15:02 Acetaminophen/Codeine [Tylenol with Codeine No.3 300MG/30MG] 1 tab PO Q6H PRN Carboxymethylcellulose Sodium [Refresh Tears 0.5%] 0 ml EYEBOTH TID PRN 10/13/19 15:04 EKG 12 Lead [EK] Routine 10/13/19 15:11 CULTURE BLOOD [BC] Urgent 10/13/19 15:15 cefTRIAXone [Rocephin] 1 gm IVPUSH Q24H 10/13/19 15:17 CULTURE BLOOD [BC] Urgent 10/13/19 16:00 Enoxaparin [Lovenox] 40 mg SUBCUT Q24H 10/13/19 17:00 Pantoprazole [ProTONIX] 40 mg PO BID@0600,1700 10/13/19 21:00 Acetaminophen [Tylenol Arthritis Pain] 650 mg PO BID Propranolol [Inderal] 80 mg PO BID 10/13/19 Dinner Regular Diet [DIET] 10/14/19 08:24 INR,PT,PROTHROMBIN TIME [COAG] Routine 10/14/19 08:30 INR,PT,PROTHROMBIN TIME [COAG] DAILY 10/14/19 09:00 Diltiazem [Cardizem CD] 180 mg PO DAILY Furosemide [Lasix] 20 mg PO DAILY Loratadine [Claritin] 10 mg PO DAILY PRN Lutein/Min/Vit C/Vit E Acetate [Ocuvite Lutein] 1 each PO DAILY lisinopriL [Prinivil] 10 mg PO DAILY methIMAzole 15 mg PO DAILY 10/14/19 16:00 Azithromycin [Zithromax] 250 mg Sodium Chloride 0.9% [Normal Saline] 250 ml IV Q24H Warfarin [Coumadin] 5 mg PO DAILY@1600 10/15/19 08:30 INR,PT,PROTHROMBIN TIME [COAG] DAILY 10/16/19 08:30 INR,PT,PROTHROMBIN TIME [COAG] DAILY 10/17/19 08:30 INR,PT,PROTHROMBIN TIME [COAG] DAILY 10/18/19 08:30 INR,PT,PROTHROMBIN TIME [COAG] DAILY 10/19/19 08:30 INR,PT,PROTHROMBIN TIME [COAG] DAILY - Plan Plan:: 1. Patient's rate controlled on the Cardizem 60 mg. So I DC'd the Cardizem 60 mg every 6 hours and started Cardizem 180 mg extended release once a day. 2. Patient is still in atrial fibrillation though the rate is controlled so will start Coumadin 5 mg a day and daily INRs. 3. Ambulate and up in chair. 4. Continue Rocephin and Zithromax for her pneumonia.
[2019-10-14] MEDS ORDERED: amLODIPine 2.5 MG Tab PO SCH (09:00)
[2019-10-14] MEDS ORDERED: Loratadine 10 MG Tab PO PRN (09:00)
[2019-10-14] MEDS: Diltiazem 180 MG Cap.CD PO SCH (09:32)
[2019-10-14] MEDS: Ondansetron 4 MG Tab.DIS PO PRN (15:40)
[2019-10-14] MEDS: cefTRIAXone 1 GM Vial IVPUSH SCH (15:42)
[2019-10-14] MEDS: Sodium Chloride 0.9% 10 ML Syringe FLUSH PRN (15:43)
[2019-10-14] MEDS: Warfarin 5 MG Tab PO SCH (15:53)
[2019-10-14] MEDS: Enoxaparin 40 MG/0.4 ML Syringe SUBCUT SCH (15:57)
[2019-10-14] MEDS ORDERED: Azithromycin 250 MG in Sodium Chloride 0.9% 250 ML IV SCH (16:00)
[2019-10-14] MEDS: Acetaminophen/Codeine 300-30 MG Tab PO PRN (17:19)
[2019-10-15] MEDS: Pantoprazole 40 MG Tab.CR PO SCH ×2 (05:22→16:33)
--- NOTE | 2019-10-15 08:31 | PCM.PN ---
- General Info Date of Service: 10/15/19 Admission Dx/Problem (Free Text): Patient states she feels much better today. She says she was a little dizzy last night but that's gone. Her breathing is better and she is less short of breath. She denies coughing, fevers, chills, palpitations or chest pain. - Patient Data Vitals - Most Recent: Last Vital Signs Temp 97.3 F 10/15/19 00:00 Pulse 97 10/15/19 05:48 Resp 16 10/15/19 00:00 BP 124/74 10/15/19 00:00 Pulse Ox 94 L 10/15/19 05:48 Weight - Most Recent: 150 lb 3 oz Lab Results Last 24 Hours: Laboratory Results - last 24 hr 10/14/19 10/15/19 Range/Units 08:45 06:15 PT 12.5 H 12.9 H (9.0-11.1) sec INR 1.29 H 1.33 H (1.00-1.24) [employer] Results Last 24 Hours: Microbiology 10/13/19 15:17 Aerobic Blood Culture - Preliminary Blood - Venous - Lab Draw NO GROWTH AFTER 1 DAY Anaerobic Blood Culture - Preliminary NO GROWTH AFTER 1 DAY 10/13/19 15:11 Aerobic Blood Culture - Preliminary Blood - Venous NO GROWTH AFTER 1 DAY Anaerobic Blood Culture - Preliminary NO GROWTH AFTER 1 DAY Med Orders - Current: Current Medications Acetaminophen (Tylenol Arthritis Pain) 650 mg PO BID [facility] Last Admin: 10/14/19 21:21 Dose: 650 mg Acetaminophen/Codeine Phosphate (Tylenol With Codeine No.3 300mg/30mg) 1 tab PO Q6H PRN PRN Reason: MODERATE PAIN Last Admin: 10/14/19 17:19 Dose: 1 tab Amoxicillin/Clavulanate Potassium (Augmentin 500 Mg\125 Mg) 1 tab PO TID [facility] Artificial Tears (Refresh Tears 0.5%) 0 ml EYEBOTH TID PRN PRN Reason: Dry Eyes Azithromycin (Zithromax) 250 mg PO DAILY [facility] Stop: 10/16/19 09:01 Diltiazem HCl (Cardizem Cd) 180 mg PO DAILY [facility] Last Admin: 10/14/19 09:32 Dose: 180 mg Enoxaparin Sodium (Lovenox) 40 mg SUBCUT Q24H [facility] Last Admin: 10/14/19 15:57 Dose: 40 mg Furosemide (Lasix) 20 mg PO DAILY [facility] Last Admin: 10/14/19 08:13 Dose: 20 mg Lisinopril (Prinivil) 10 mg PO DAILY [facility] Last Admin: 10/14/19 08:14 Dose: 10 mg Loratadine (Claritin) 10 mg PO DAILY PRN PRN Reason: ALLERGIES Methimazole (Methimazole) 15 mg PO DAILY [facility] Last Admin: 10/14/19 08:13 Dose: 15 mg Ondansetron HCl (Zofran Odt) 4 mg PO Q4H PRN PRN Reason: nausea, able to take PO Last Admin: 10/14/19 15:40 Dose: 4 mg Pantoprazole Sodium (Protonix) 40 mg PO BID@0600,1700 [facility] Last Admin: 10/15/19 05:22 Dose: 40 mg Propranolol HCl (Inderal) 40 mg PO BID [facility] Last Admin: 10/14/19 21:20 Dose: 40 mg Sodium Chloride (Saline Flush) 10 ml FLUSH ASDIRECTED PRN PRN Reason: Keep Vein Open Last Admin: 10/14/19 15:43 Dose: 10 ml Vit C/Vit E/Zinc/Copper/Lutein (Ocuvite Lutein) 1 each PO DAILY [facility] Last Admin: 10/14/19 08:14 Dose: 1 each Warfarin Sodium (Coumadin) 5 mg PO DAILY@1600 [facility] Last Admin: 10/14/19 15:53 Dose: 5 mg Discontinued Medications Amlodipine Besylate (Norvasc) 2.5 mg PO DAILY [facility] Ceftriaxone Sodium (Rocephin) 1 gm IVPUSH Q24H [facility] Last Admin: 10/14/19 15:42 Dose: 1 gm Diltiazem HCl (Cardizem) 60 mg PO Q6H [facility] Last Admin: 10/14/19 03:20 Dose: 60 mg Azithromycin 500 mg/ Sodium (Chloride) 250 mls @ 250 mls/hr IV ONETIME ONE Stop: 10/13/19 16:14 Last Admin: 10/13/19 15:59 Dose: 250 mls/hr Azithromycin 250 mg/ Sodium (Chloride) 250 mls @ 250 mls/hr IV Q24H [facility] Stop: 10/17/19 16:59 Last Admin: 10/14/19 15:48 Dose: 250 mls/hr Propranolol HCl (Inderal) 80 mg PO BID [facility] Last Admin: 10/14/19 08:13 Dose: 80 mg - Exam General: Alert, Oriented, Cooperative Lungs: Clear to Auscultation, Normal Respiratory Effort, Decreased Breath Sounds. No: Crackles, Rales, Rhonchi Cardiovascular: Regular Rate, No Murmurs, Irregular Rhythm Extremities: Pedal Edema (No changes) Sepsis Event Note - Evaluation Sepsis Screening Result: No Definite Risk - Focused Exam Vital Signs: Vital Signs Temp Pulse Resp BP Pulse Ox 10/15/19 05:48 97 94 L 10/15/19 00:00 97.3 F 104 H 16 124/74 92 L Date Exam was Performed: 10/15/19 Time Exam was Performed: 08:29 - Problem List & Annotations (1) Pneumonia SNOMED Code(s): 257618743 Code(s): J18.9 - PNEUMONIA, UNSPECIFIED ORGANISM Status: Acute Current Visit: Yes (2) Rapid atrial fibrillation SNOMED Code(s): 872885222 Code(s): I48.91 - UNSPECIFIED ATRIAL FIBRILLATION Status: Acute Current Visit: Yes (3) Palliative care status SNOMED Code(s): 717102174 Code(s): Z51.5 - ENCOUNTER FOR PALLIATIVE CARE Status: Acute Current Visit: Yes - Problem List Review Problem List Initiated/Reviewed/Updated: Yes - My Orders Last 24 Hours: My Active Orders 10/14/19 09:00 Diltiazem [Cardizem CD] 180 mg PO DAILY Furosemide [Lasix] 20 mg PO DAILY Loratadine [Claritin] 10 mg PO DAILY PRN Lutein/Min/Vit C/Vit E Acetate [Ocuvite Lutein] 1 each PO DAILY lisinopriL [Prinivil] 10 mg PO DAILY methIMAzole 15 mg PO DAILY 10/14/19 16:00 Warfarin [Coumadin] 5 mg PO DAILY@1600 10/14/19 21:00 Propranolol [Inderal] 40 mg PO BID 10/15/19 06:00 Daily Weight [Height and Weight] [RC] 0600 10/15/19 08:28 Consult to Occupational Therapy [OT Evaluation and Treatment] [CONS] Routine Consult to Physical Therapy [PT Evaluation and Treatment] [CONS] Routine 10/15/19 09:00 Amoxicillin/Clavulanate K [Augmentin 500 MG\125 MG] 1 tab PO TID Azithromycin [Zithromax] 250 mg PO DAILY 10/16/19 08:30 INR,PT,PROTHROMBIN TIME [COAG] DAILY 10/17/19 08:30 INR,PT,PROTHROMBIN TIME [COAG] DAILY 10/18/19 08:30 INR,PT,PROTHROMBIN TIME [COAG] DAILY 10/19/19 08:30 INR,PT,PROTHROMBIN TIME [COAG] DAILY - Plan Plan:: 1. DC Rocephin and Zithromax IV. 2. Start Augmentin 500 mg 3 times a day with Zithromax 250 mg a day for 2 doses of Zithromax. 3. PT/OT for strengthening and ambulation. 4. Continue telemetry to watch her heart rate and rhythm.
[2019-10-15] MEDS: Diltiazem 180 MG Cap.CD PO SCH (08:34)
[2019-10-15] MEDS: Propranolol 40 MG Tab PO SCH ×2 (08:34→20:35)
[2019-10-15] MEDS: Methimazole 5 MG Tab PO SCH (08:34)
[2019-10-15] MEDS: Lutein/Minerals/Vitamin C/Vitamin E Acetate Cap PO SCH (08:34)
[2019-10-15] MEDS: Lisinopril 10 MG Tab PO SCH (08:34)
[2019-10-15] MEDS: Acetaminophen 650 MG Tab.ER PO SCH ×2 (08:34→20:35)
[2019-10-15] MEDS: Azithromycin 250 MG Tab PO SCH (08:40)
[2019-10-15] MEDS: Amoxicillin/Clavulanate K 500-125 MG Tab PO SCH ×3 (08:40→20:35)
[2019-10-15] MEDS: Furosemide 20 MG Tab PO SCH (08:41)
[2019-10-15] MEDS: Enoxaparin 40 MG/0.4 ML Syringe SUBCUT SCH (16:32)
[2019-10-15] MEDS: Warfarin 5 MG Tab PO SCH (16:32)
[2019-10-15] MEDS: Ondansetron 4 MG Tab.DIS PO PRN (17:43)
[2019-10-16] MEDS: Pantoprazole 40 MG Tab.CR PO SCH ×2 (05:34→16:25)
[2019-10-16] MEDS: Lisinopril 10 MG Tab PO SCH (08:36)
[2019-10-16] MEDS: Furosemide 20 MG Tab PO SCH (08:36)
[2019-10-16] MEDS: Lutein/Minerals/Vitamin C/Vitamin E Acetate Cap PO SCH (08:36)
[2019-10-16] MEDS: Propranolol 40 MG Tab PO SCH ×2 (08:36→20:54)
[2019-10-16] MEDS: Methimazole 5 MG Tab PO SCH (08:37)
[2019-10-16] MEDS: Acetaminophen 650 MG Tab.ER PO SCH ×2 (08:37→20:55)
[2019-10-16] MEDS: Amoxicillin/Clavulanate K 500-125 MG Tab PO SCH ×3 (08:42→20:54)
[2019-10-16] MEDS: Diltiazem 180 MG Cap.CD PO SCH (08:43)
[2019-10-16] MEDS: Azithromycin 250 MG Tab PO SCH (08:43)
--- NOTE | 2019-10-16 09:54 | PCM.PN ---
- General Info Date of Service: 10/16/19 Admission Dx/Problem (Free Text): Patient states that she has a little shortness of breath but no chest pain, cough. When she is walking now she feels very weak but has no dizziness. Heart rate still goes to 130s occasionally when she walks. Other times is below 90 when she is resting. She still in atrial fibrillation. - Patient Data Vitals - Most Recent: Last Vital Signs Temp 97.2 F 10/16/19 07:15 Pulse 105 H 10/16/19 07:15 Resp 22 H 10/16/19 07:15 BP 121/69 10/16/19 08:36 Pulse Ox 90 L 10/16/19 07:15 Weight - Most Recent: 150 lb 8 oz Lab Results Last 24 Hours: Laboratory Results - last 24 hr 10/16/19 Range/Units 06:15 PT 28.5 H (9.0-11.1) sec INR 2.97 H (1.00-1.24) [employer] Results Last 24 Hours: Microbiology 10/13/19 15:11 Aerobic Blood Culture - Preliminary Blood - Venous NO GROWTH AFTER 2 DAYS Anaerobic Blood Culture - Preliminary NO GROWTH AFTER 2 DAYS 10/13/19 15:17 Aerobic Blood Culture - Preliminary Blood - Venous - Lab Draw NO GROWTH AFTER 2 DAYS Anaerobic Blood Culture - Preliminary NO GROWTH AFTER 2 DAYS Med Orders - Current: Current Medications Acetaminophen (Tylenol Arthritis Pain) 650 mg PO BID [facility] Last Admin: 10/16/19 08:37 Dose: 650 mg Acetaminophen/Codeine Phosphate (Tylenol With Codeine No.3 300mg/30mg) 1 tab PO Q6H PRN PRN Reason: MODERATE PAIN Last Admin: 10/14/19 17:19 Dose: 1 tab Amoxicillin/Clavulanate Potassium (Augmentin 500 Mg\125 Mg) 1 tab PO TID [facility] Last Admin: 10/16/19 08:42 Dose: 1 tab Artificial Tears (Refresh Tears 0.5%) 0 ml EYEBOTH TID PRN PRN Reason: Dry Eyes Diltiazem HCl (Cardizem Cd) 180 mg PO DAILY [facility] Last Admin: 10/16/19 08:43 Dose: 180 mg Enoxaparin Sodium (Lovenox) 40 mg SUBCUT Q24H [facility] Last Admin: 10/15/19 16:32 Dose: 40 mg Furosemide (Lasix) 20 mg PO DAILY [facility] Last Admin: 10/16/19 08:36 Dose: 20 mg Lisinopril (Prinivil) 10 mg PO DAILY [facility] Last Admin: 10/16/19 08:36 Dose: 10 mg Loratadine (Claritin) 10 mg PO DAILY PRN PRN Reason: ALLERGIES Methimazole (Methimazole) 15 mg PO DAILY [facility] Last Admin: 10/16/19 08:37 Dose: 15 mg Ondansetron HCl (Zofran Odt) 4 mg PO Q4H PRN PRN Reason: nausea, able to take PO Last Admin: 10/15/19 17:43 Dose: 4 mg Pantoprazole Sodium (Protonix) 40 mg PO BID@0600,1700 [facility] Last Admin: 10/16/19 05:34 Dose: 40 mg Propranolol HCl (Inderal) 40 mg PO BID [facility] Last Admin: 10/16/19 08:36 Dose: 40 mg Sodium Chloride (Saline Flush) 10 ml FLUSH ASDIRECTED PRN PRN Reason: Keep Vein Open Last Admin: 10/14/19 15:43 Dose: 10 ml Vit C/Vit E/Zinc/Copper/Lutein (Ocuvite Lutein) 1 each PO DAILY [facility] Last Admin: 10/16/19 08:36 Dose: 1 each Warfarin Sodium (Coumadin) 5 mg PO DAILY@1600 [facility] Last Admin: 10/15/19 16:32 Dose: 5 mg Discontinued Medications Amlodipine Besylate (Norvasc) 2.5 mg PO DAILY [facility] Azithromycin (Zithromax) 250 mg PO DAILY [facility] Stop: 10/16/19 09:01 Last Admin: 10/16/19 08:43 Dose: 250 mg Ceftriaxone Sodium (Rocephin) 1 gm IVPUSH Q24H [facility] Last Admin: 10/14/19 15:42 Dose: 1 gm Diltiazem HCl (Cardizem) 60 mg PO Q6H [facility] Last Admin: 10/14/19 03:20 Dose: 60 mg Azithromycin 500 mg/ Sodium (Chloride) 250 mls @ 250 mls/hr IV ONETIME ONE Stop: 10/13/19 16:14 Last Admin: 10/13/19 15:59 Dose: 250 mls/hr Azithromycin 250 mg/ Sodium (Chloride) 250 mls @ 250 mls/hr IV Q24H [facility] Stop: 10/17/19 16:59 Last Admin: 10/14/19 15:48 Dose: 250 mls/hr Propranolol HCl (Inderal) 80 mg PO BID [facility] Last Admin: 10/14/19 08:13 Dose: 80 mg - Exam General: Alert, Oriented Lungs: Clear to Auscultation, Normal Respiratory Effort, Decreased Breath Sounds Cardiovascular: No Murmurs, Irregular Rhythm, Tachycardia Extremities: Pedal Edema Sepsis Event Note - Evaluation Sepsis Screening Result: Sepsis Risk - Focused Exam Vital Signs: Vital Signs Temp Pulse Resp BP BP BP Pulse Ox 10/16/19 08:36 121/69 10/16/19 07:15 97.2 F 105 H 22 H 121/69 90 L 10/16/19 00:00 98.1 F 97 18 104/64 92 L Date Exam was Performed: 10/16/19 Time Exam was Performed: 09:52 - Problem List & Annotations (1) Pneumonia SNOMED Code(s): 686065029 Code(s): J18.9 - PNEUMONIA, UNSPECIFIED ORGANISM Status: Acute Current Visit: Yes (2) Rapid atrial fibrillation SNOMED Code(s): 304663043 Code(s): I48.91 - UNSPECIFIED ATRIAL FIBRILLATION Status: Acute Current Visit: Yes (3) Palliative care status SNOMED Code(s): 922393826 Code(s): Z51.5 - ENCOUNTER FOR PALLIATIVE CARE Status: Acute Current Visit: Yes (4) CHF exacerbation SNOMED Code(s): 360714073, 73872569168873 Code(s): I50.9 - HEART FAILURE, UNSPECIFIED Status: Acute Current Visit: No (5) Dizziness, nonspecific SNOMED Code(s): 186724959, 647129614 Code(s): R42 - DIZZINESS AND GIDDINESS Status: Acute Current Visit: No - Problem List Review Problem List Initiated/Reviewed/Updated: Yes - My Orders Last 24 Hours: My Active Orders 10/15/19 09:00 Amoxicillin/Clavulanate K [Augmentin 500 MG\125 MG] 1 tab PO TID 10/17/19 08:30 INR,PT,PROTHROMBIN TIME [COAG] DAILY 10/18/19 08:30 INR,PT,PROTHROMBIN TIME [COAG] DAILY 10/19/19 08:30 INR,PT,PROTHROMBIN TIME [COAG] DAILY - Plan Plan:: 1 PT/OT evaluation for possible swing bed. 2. Pharmacy to monitor Coumadin.
[2019-10-16] MEDS ORDERED: Warfarin Sliding Scale PO SCH (10:15)
[2019-10-16] MEDS ORDERED: Warfarin 2.5 MG Tab PO SCH (16:00)
[2019-10-16] MEDS: Enoxaparin 40 MG/0.4 ML Syringe SUBCUT SCH (16:25)
[2019-10-17] MEDS: Pantoprazole 40 MG Tab.CR PO SCH (05:20)
[2019-10-17 08:06] VITALS: BP 143/79; PULSE 105
--- NOTE | 2019-10-17 08:11 | PCM.PN ---
- General Info Date of Service: 10/17/19 Admission Dx/Problem (Free Text): Patient has no complaints today. She denies palpitations, chest pain, shortness of breath, cough, dizziness. She still little weak when she walks. - Patient Data Vitals - Most Recent: Last Vital Signs Temp 97.3 F 10/17/19 08:04 Pulse 105 H 10/17/19 08:04 Resp 18 10/17/19 08:04 BP 143/79 H 10/17/19 08:04 Pulse Ox 93 L 10/17/19 08:04 Weight - Most Recent: 149 lb 11.2 oz Lab Results Last 24 Hours: Laboratory Results - last 24 hr 10/17/19 Range/Units 06:00 PT 56.6 H* (9.0-11.1) sec INR 5.94 H* (1.00-1.24) [employer] Results Last 24 Hours: Microbiology 10/13/19 15:17 Aerobic Blood Culture - Preliminary Blood - Venous - Lab Draw NO GROWTH AFTER 3 DAYS Anaerobic Blood Culture - Preliminary NO GROWTH AFTER 3 DAYS 10/13/19 15:11 Aerobic Blood Culture - Preliminary Blood - Venous NO GROWTH AFTER 3 DAYS Anaerobic Blood Culture - Preliminary NO GROWTH AFTER 3 DAYS Med Orders - Current: Current Medications Acetaminophen (Tylenol Arthritis Pain) 650 mg PO BID [facility] Last Admin: 10/16/19 20:55 Dose: 650 mg Acetaminophen/Codeine Phosphate (Tylenol With Codeine No.3 300mg/30mg) 1 tab PO Q6H PRN PRN Reason: MODERATE PAIN Last Admin: 10/14/19 17:19 Dose: 1 tab Amoxicillin/Clavulanate Potassium (Augmentin 500 Mg\125 Mg) 1 tab PO TID [facility] Last Admin: 10/16/19 20:54 Dose: 1 tab Artificial Tears (Refresh Tears 0.5%) 0 ml EYEBOTH TID PRN PRN Reason: Dry Eyes Diltiazem HCl (Cardizem Cd) 180 mg PO DAILY [facility] Last Admin: 10/16/19 08:43 Dose: 180 mg Enoxaparin Sodium (Lovenox) 40 mg SUBCUT Q24H [facility] Last Admin: 10/16/19 16:25 Dose: 40 mg Furosemide (Lasix) 20 mg PO DAILY [facility] Last Admin: 10/16/19 08:36 Dose: 20 mg Lisinopril (Prinivil) 10 mg PO DAILY [facility] Last Admin: 10/16/19 08:36 Dose: 10 mg Loratadine (Claritin) 10 mg PO DAILY PRN PRN Reason: ALLERGIES Methimazole (Methimazole) 15 mg PO DAILY [facility] Last Admin: 10/16/19 08:37 Dose: 15 mg Ondansetron HCl (Zofran Odt) 4 mg PO Q4H PRN PRN Reason: nausea, able to take PO Last Admin: 10/15/19 17:43 Dose: 4 mg Pantoprazole Sodium (Protonix) 40 mg PO BID@0600,1700 [facility] Last Admin: 10/17/19 05:20 Dose: 40 mg Propranolol HCl (Inderal) 40 mg PO BID [facility] Last Admin: 10/16/19 20:54 Dose: 40 mg Sodium Chloride (Saline Flush) 10 ml FLUSH ASDIRECTED PRN PRN Reason: Keep Vein Open Last Admin: 10/14/19 15:43 Dose: 10 ml Vit C/Vit E/Zinc/Copper/Lutein (Ocuvite Lutein) 1 each PO DAILY [facility] Last Admin: 10/16/19 08:36 Dose: 1 each Warfarin Sodium (Coumadin Sliding Scale) 1 each PO ASDIRECTED [facility] Discontinued Medications Amlodipine Besylate (Norvasc) 2.5 mg PO DAILY [facility] Azithromycin (Zithromax) 250 mg PO DAILY [facility] Stop: 10/16/19 09:01 Last Admin: 10/16/19 08:43 Dose: 250 mg Ceftriaxone Sodium (Rocephin) 1 gm IVPUSH Q24H [facility] Last Admin: 10/14/19 15:42 Dose: 1 gm Diltiazem HCl (Cardizem) 60 mg PO Q6H [facility] Last Admin: 10/14/19 03:20 Dose: 60 mg Azithromycin 500 mg/ Sodium (Chloride) 250 mls @ 250 mls/hr IV ONETIME ONE Stop: 10/13/19 16:14 Last Admin: 10/13/19 15:59 Dose: 250 mls/hr Azithromycin 250 mg/ Sodium (Chloride) 250 mls @ 250 mls/hr IV Q24H [facility] Stop: 10/17/19 16:59 Last Admin: 10/14/19 15:48 Dose: 250 mls/hr Propranolol HCl (Inderal) 80 mg PO BID [facility] Last Admin: 10/14/19 08:13 Dose: 80 mg Warfarin Sodium (Coumadin) 5 mg PO DAILY@1600 [facility] Last Admin: 10/15/19 16:32 Dose: 5 mg Warfarin Sodium (Coumadin) 2.5 mg PO 1600 [facility] Stop: 10/16/19 16:01 Last Admin: 10/16/19 16:25 Dose: 2.5 mg - Exam General: Alert, Oriented Lungs: Clear to Auscultation, Normal Respiratory Effort Cardiovascular: Regular Rate, Irregular Rhythm, Murmurs Extremities: Pedal Edema Sepsis Event Note - Evaluation Sepsis Screening Result: No Definite Risk - Focused Exam Vital Signs: Vital Signs Temp Pulse Resp BP Pulse Ox 10/17/19 08:04 97.3 F 105 H 18 143/79 H 93 L 10/17/19 00:28 98.0 F 124 H 20 109/71 91 L Date Exam was Performed: 10/17/19 Time Exam was Performed: 08:09 - Problem List & Annotations (1) Pneumonia SNOMED Code(s): 497089601 Code(s): J18.9 - PNEUMONIA, UNSPECIFIED ORGANISM Status: Acute Current Visit: Yes (2) Rapid atrial fibrillation SNOMED Code(s): 814612069 Code(s): I48.91 - UNSPECIFIED ATRIAL FIBRILLATION Status: Acute Current Visit: Yes (3) Palliative care status SNOMED Code(s): 409468213 Code(s): Z51.5 - ENCOUNTER FOR PALLIATIVE CARE Status: Acute Current Visit: Yes (4) CHF exacerbation SNOMED Code(s): 690743095, 65917840982142 Code(s): I50.9 - HEART FAILURE, UNSPECIFIED Status: Acute Current Visit: No (5) Dizziness, nonspecific SNOMED Code(s): 602077456, 532657392 Code(s): R42 - DIZZINESS AND GIDDINESS Status: Acute Current Visit: No - Problem List Review Problem List Initiated/Reviewed/Updated: Yes - My Orders Last 24 Hours: My Active Orders 10/16/19 10:15 Warfarin Sliding Scale [Coumadin Sliding Scale] 1 each PO ASDIRECTED 10/17/19 08:08 Ready for Discharge [RC] PER UNIT ROUTINE 10/18/19 08:30 INR,PT,PROTHROMBIN TIME [COAG] DAILY 10/19/19 08:30 INR,PT,PROTHROMBIN TIME [COAG] DAILY - Plan Plan:: 1. Discharge to home. 2. Home health, PT/OT 3. Hold Coumadin today and tomorrow and do an INR on September.
--- NOTE | 2019-10-17 08:16 | PCM.DCSUM1 ---
Discharge Summary - Hospital Course Free Text/Narrative:: Hospital course-patient was in rapid atrial fibrillation with a rate sometimes over 140s. She also had pneumonia and was started on Zithromax IV. She was on propranolol for hyperthyroidism so I decrease the dose to 40 twice a day from 80 twice a day is started on Cardizem 60 mg every 6 hours for 24 hours then 180 mg a day. Her heart rate was controlled most the time on the 180 extended release of Cardizem. Patient's symptoms slowly got better. Her CHF was about stable after that and she has little leg swelling and her breathing improved. She is low dizzy when she Walked and was very weak. But the dizziness got better. We did start Coumadin 2.5 mg a day and after 3 days her INR went over 5. We felt this might be because of the antibiotic treatment. On 10/15/19 was switched over to oral medication with Augmentin and Zithromax and will send her home on Augmentin. She will go home with home health/PT/OT. Brief History: This is an 88-year-old female patient over from the clinic from [facility] physician's anesthetic assistant for pneumonia and rapid atrial fibrillation. The patient states she has been sick for about 2 months getting worse. She was seen in the clinic early this week and diagnosed with pneumonia and put on doxycycline. She came back today she was getting worse and they felt she should be admitted. Her EKG showed rapid A. fib with RVR. Patient states she feels dizzy, weak, palpitations. She denies fever, is chills, runny nose, sore throat , cough. She is short of breath which is more so when she lays down and exert yourself. She says she had a temperature in the clinic but has not really noticed. She had ablation of atrial flutter 2 years ago. Not on any anticoagulation. She has CHF with leg swelling also. Diagnosis: Stroke: No - Discharge Data Discharge Date: 10/17/19 Discharge Disposition: Home, W Home Health Agency 06 Condition: Good - Referral to Home Health Date of Face to Face Encounter: 10/17/19 Reason for Homebound Status: Pneumonia, rapid atrial fibrillation, CHF, new start on anticoagulation, weakness Primary Care Physician: David Scott MD Skilled Need: Home safety, medication teaching, medication monitoring, INR monitoring strengthening, ADLs. - Discharge Diagnosis/Problem(s) (1) Pneumonia SNOMED Code(s): 725909297 ICD Code: J18.9 - PNEUMONIA, UNSPECIFIED ORGANISM Status: Acute Current Visit: Yes (2) Rapid atrial fibrillation SNOMED Code(s): 294374370 ICD Code: I48.91 - UNSPECIFIED ATRIAL FIBRILLATION Status: Acute Current Visit: Yes (3) Palliative care status SNOMED Code(s): 806075972 ICD Code: Z51.5 - ENCOUNTER FOR PALLIATIVE CARE Status: Acute Current Visit: Yes (4) CHF exacerbation SNOMED Code(s): 452586940, 48783894226191 ICD Code: I50.9 - HEART FAILURE, UNSPECIFIED Status: Acute Current Visit : No (5) Dizziness, nonspecific SNOMED Code(s): 789780616, 682459691 ICD Code: R42 - DIZZINESS AND GIDDINESS Status: Acute Current Visit: No - Patient Summary/Data Consults: Consultations 10/15/19 08:28 Consult to Occupational Therapy [OT Evaluation and Treatment] [CONS] Routine Please Evaluate and Treat. OT Reason for Consult: Strengthening This query below is only for informational purposes and is not editable. Admission Diagnosis/Problem: Atrial fibrillation Consult to Physical Therapy [PT Evaluation and Treatment] [CONS] Routine Please Evaluate and Treat. PT Reason for Consult: Strengthening This query below is only for informational purposes and is not editable. Admission Diagnosis/Problem: Atrial fibrillation - Patient Instructions Diet: Heart Healthy Diet Activity: As Tolerated Driving: Do Not Drive Showering/Bathing: May Shower Notify Provider of: Increased Pain Other/Special Instructions: 1. Recheck with Dr. Locke in 1 week. 2. Home health/PT/OT. 3. Hold Coumadin today and tomorrow and check INR on . 4. Set up with the Coumadin clinic and [facility]. - Discharge Plan Prescriptions/Med Rec: Amoxicillin/Clavulanate K [Augmentin 500-125 MG] 1 tab PO TID #15 tablet Diltiazem HCl [Cardizem LA] 180 mg PO DAILY #30 tab.sr.24h Warfarin Sodium [Coumadin] 2.5 mg PO DAILY #30 tablet Home Medications: Home Meds Methimazole [Tapazole] 15 mg PO DAILY 06/19/13 [History] Omeprazole 20 mg PO BIDAC 06/19/13 [History] Acetaminophen [Tylenol Arthritis] 650 mg PO BID 10/13/19 [History] Acetaminophen with Codeine [Tylenol with Codeine #3 Tablet] 1 tab PO Q6H PRN [History] Carboxymethylcellulose Sodium [Refresh Tears] 1 drop EYEBOTH TID PRN 10/13/19 [ History] Doxycycline Hyclate 100 mg PO BID 10/13/19 [History] Furosemide [Lasix] 20 mg PO DAILY 10/13/19 [History] Loratadine [Claritin] 10 mg PO DAILY PRN 10/13/19 [History] Mineral Oil/Petrolatum,White [Refresh P.M.] 1 applic EYEBOTH BEDTIME 10/13/19 [ History] Vit C/E/Zn/Coppr/Lutein/Zeaxan [Preservision Areds 2 Softgel] 1 cap PO DAILY [History] amLODIPine [Norvasc] 2.5 mg PO DAILY 10/13/19 [History] lisinopriL [Lisinopril] 10 mg PO DAILY 10/13/19 [History] Amoxicillin/Clavulanate K [Augmentin 500-125 MG] 1 tab PO TID #15 tablet [Rx] Diltiazem HCl [Cardizem LA] 180 mg PO DAILY #30 tab.sr.24h 10/17/19 [Rx] Propranolol [Inderal] 40 mg PO BID #0 10/17/19 [Rx] Warfarin Sodium [Coumadin] 2.5 mg PO DAILY #30 tablet 10/17/19 [Rx] Patient Handouts: Fall Prevention in Hospitals, Adult, Atrial Fibrillation, [id number], Venous Thromboembolism Prevention - Discharge Summary/Plan Comment DC Time >30 min.: No - Patient Data Vitals - Most Recent: Last Vital Signs Temp 97.3 F 10/17/19 08:04 Pulse 105 H 10/17/19 08:04 Resp 18 10/17/19 08:04 BP 143/79 H 10/17/19 08:04 Pulse Ox 93 L 10/17/19 08:04 Weight - Most Recent: 149 lb 11.2 oz Lab Results - Last 24 hrs: Laboratory Results - last 24 hr 02/25/20 Range/Units 06:00 PT 56.6 H* (9.0-11.1) sec INR 5.94 H* (1.00-1.24) NIMESH Results - Last 24 hrs: Microbiology 10/13/19 15:17 Aerobic Blood Culture - Preliminary Blood - Venous - Lab Draw NO GROWTH AFTER 3 DAYS Anaerobic Blood Culture - Preliminary NO GROWTH AFTER 3 DAYS 10/13/19 15:11 Aerobic Blood Culture - Preliminary Blood - Venous NO GROWTH AFTER 3 DAYS Anaerobic Blood Culture - Preliminary NO GROWTH AFTER 3 DAYS Med Orders - Current: Current Medications Acetaminophen (Tylenol Arthritis Pain) 650 mg PO BID [facility] Last Admin: 10/16/19 20:55 Dose: 650 mg Acetaminophen/Codeine Phosphate (Tylenol With Codeine No.3 300mg/30mg) 1 tab PO Q6H PRN PRN Reason: MODERATE PAIN Last Admin: 10/14/19 17:19 Dose: 1 tab Amoxicillin/Clavulanate Potassium (Augmentin 500 Mg\125 Mg) 1 tab PO TID [facility] Last Admin: 10/16/19 20:54 Dose: 1 tab Artificial Tears (Refresh Tears 0.5%) 0 ml EYEBOTH TID PRN PRN Reason: Dry Eyes Diltiazem HCl (Cardizem Cd) 180 mg PO DAILY [facility] Last Admin: 10/16/19 08:43 Dose: 180 mg Enoxaparin Sodium (Lovenox) 40 mg SUBCUT Q24H [facility] Last Admin: 10/16/19 16:25 Dose: 40 mg Furosemide (Lasix) 20 mg PO DAILY [facility] Last Admin: 10/16/19 08:36 Dose: 20 mg Lisinopril (Prinivil) 10 mg PO DAILY [facility] Last Admin: 10/16/19 08:36 Dose: 10 mg Loratadine (Claritin) 10 mg PO DAILY PRN PRN Reason: ALLERGIES Methimazole (Methimazole) 15 mg PO DAILY [facility] Last Admin: 10/16/19 08:37 Dose: 15 mg Ondansetron HCl (Zofran Odt) 4 mg PO Q4H PRN PRN Reason: nausea, able to take PO Last Admin: 10/15/19 17:43 Dose: 4 mg Pantoprazole Sodium (Protonix) 40 mg PO BID@0600,1700 [facility] Last Admin: 10/17/19 05:20 Dose: 40 mg Propranolol HCl (Inderal) 40 mg PO BID [facility] Last Admin: 10/16/19 20:54 Dose: 40 mg Sodium Chloride (Saline Flush) 10 ml FLUSH ASDIRECTED PRN PRN Reason: Keep Vein Open Last Admin: 10/14/19 15:43 Dose: 10 ml Vit C/Vit E/Zinc/Copper/Lutein (Ocuvite Lutein) 1 each PO DAILY [facility] Last Admin: 10/16/19 08:36 Dose: 1 each Warfarin Sodium (Coumadin Sliding Scale) 1 each PO ASDIRECTED [facility] Discontinued Medications Amlodipine Besylate (Norvasc) 2.5 mg PO DAILY [facility] Azithromycin (Zithromax) 250 mg PO DAILY [facility] Stop: 10/16/19 09:01 Last Admin: 10/16/19 08:43 Dose: 250 mg Ceftriaxone Sodium (Rocephin) 1 gm IVPUSH Q24H [facility] Last Admin: 10/14/19 15:42 Dose: 1 gm Diltiazem HCl (Cardizem) 60 mg PO Q6H [facility] Last Admin: 10/14/19 03:20 Dose: 60 mg Azithromycin 500 mg/ Sodium (Chloride) 250 mls @ 250 mls/hr IV ONETIME ONE Stop: 10/13/19 16:14 Last Admin: 10/13/19 15:59 Dose: 250 mls/hr Azithromycin 250 mg/ Sodium (Chloride) 250 mls @ 250 mls/hr IV Q24H [facility] Stop: 10/17/19 16:59 Last Admin: 10/14/19 15:48 Dose: 250 mls/hr Propranolol HCl (Inderal) 80 mg PO BID [facility] Last Admin: 10/14/19 08:13 Dose: 80 mg Warfarin Sodium (Coumadin) 5 mg PO DAILY@1600 [facility] Last Admin: 10/15/19 16:32 Dose: 5 mg Warfarin Sodium (Coumadin) 2.5 mg PO 1600 [facility] Stop: 10/16/19 16:01 Last Admin: 10/16/19 16:25 Dose: 2.5 mg
[2019-10-17] MEDS: Furosemide 20 MG Tab PO SCH (08:35)
[2019-10-17] MEDS: Amoxicillin/Clavulanate K 500-125 MG Tab PO SCH ×2 (08:35→13:12)
[2019-10-17] MEDS: Propranolol 40 MG Tab PO SCH (08:35)
[2019-10-17] MEDS: Diltiazem 180 MG Cap.CD PO SCH (08:35)
[2019-10-17] MEDS: Lisinopril 10 MG Tab PO SCH (08:36)
[2019-10-17] MEDS: Lutein/Minerals/Vitamin C/Vitamin E Acetate Cap PO SCH (08:36)
[2019-10-17] MEDS: Methimazole 5 MG Tab PO SCH (08:36)
[2019-10-17] MEDS: Acetaminophen 650 MG Tab.ER PO SCH (08:37)
== END 2019-10-17 14:20 | disposition home health service (06) | DRG 308 ==
LOC: FB.MS 13:32 → OBSVTOIN 14:56 → FB.MS 14:56
PROVIDERS: ADMIT Family Medicine; ATTEND Family Medicine
DX: I48.91 Unspecified atrial fibrillation (principal); J18.9 Pneumonia, unspecified organism; E03.9 Hypothyroidism, unspecified; M19.90 Unspecified osteoarthritis, unspecified site; H54.7 Unspecified visual loss; H91.90 Unspecified hearing loss, unspecified ear; E78.00 Pure hypercholesterolemia, unspecified; Z51.5 Encounter for palliative care; Z66 Do not resuscitate; I50.9 Heart failure, unspecified; Z85.3 Personal history of malignant neoplasm of breast; Z79.899 Other long term (current) drug therapy; Z90.710 Acquired absence of both cervix and uterus; Z88.1 Allergy status to other antibiotic agents; Z91.012 Allergy to eggs; Z90.10 Acquired absence of unspecified breast and nipple
CPT/HCPCS: 36415; 80053; 83880; 84484; 85025; 85610; 87040; 93005; 97161-GP; 97165-GO; A9270-GY; J0456; J0696; J1650; J7050

== ENCOUNTER 2019-10-22 15:07 | Emergency (ER) | payer MEDICARE ==
[2019-10-22] MEDS ORDERED: Furosemide 40 MG/4 ML VIAL IVPUSH ONE (15:54)
--- NOTE | 2019-10-22 16:01 | EDM.PDOC ---
ED HPI GENERAL MEDICAL PROBLEM - General Chief Complaint: Respiratory Problem Stated Complaint: SOB,HEART POUNDING Time Seen by Provider: 10/22/19 15:35 Source of Information: Reports: Patient History Limitations: Reports: No Limitations - History of Present Illness INITIAL COMMENTS - FREE TEXT/NARRATIVE: c/o sob and palpitations pt reports she was dx with afib 1y ago, had ablation x 2 and was in SR however she had inc'd sob and fatigue over 2m and was admitted 10/13 to 10/17 here for recurrent afib with RVR and pneumonia propranolol (for her hyperthyroid) was dec'd from 80 mg BID to 40 mg BID, dilt was begun and pt d/c'ed on dilt CD 180 mg qd she was on azithro and Augmentin in hospital, however was d/c'ed just on Augmentin d/t INR 5.9 when last checked 5d ago Dr Lovell tx pt in hosp, pt to see her PCP Dr Locke tomorrow, as an appointment with a new die press operator in [place] in 2d [place] with one of her sons (who farms and drives an 18-wheeller), another son brought her to the hosp today in the past 5d at home since d/c she has been using her cane and "feeling okay" , did not sleep well last night, 2 pillows, tossed an turned, voided once during the night in mid morning today she had inc'd sob and palpitations no f/c/d, no n/v had used a walker in hosp ("walked up and down the halls"), using a cane at home , no falls lasb BNP 10,403 from 9d ago, was 2,000 from 2y ago lasb BUN/creat 22/1.0 with GFR 33 from 9d ago last INR 5.9 from 5d ago AST/ALT 32/31 from 9d ago, c/w mild passive liver congestion last trop 13.0 from 9d ago - Related Data Allergies Allergy/AdvReac Type Severity Reaction Status Date / Time ciprofloxacin Allergy Rash Verified 10/13/19 14:55 EGGS Allergy Other Uncoded 10/13/19 14:55 Home Meds: Home Meds Methimazole [Tapazole] 15 mg PO DAILY 06/19/13 [History] Omeprazole 20 mg PO BIDAC 06/19/13 [History] Acetaminophen [Tylenol Arthritis] 650 mg PO BID 10/13/19 [History] Acetaminophen with Codeine [Tylenol with Codeine #3 Tablet] 1 tab PO Q6H PRN [History] Carboxymethylcellulose Sodium [Refresh Tears] 1 drop EYEBOTH TID PRN 10/13/19 [ History] Doxycycline Hyclate 100 mg PO BID 10/13/19 [History] Furosemide [Lasix] 20 mg PO DAILY 10/13/19 [History] Loratadine [Claritin] 10 mg PO DAILY PRN 10/13/19 [History] Mineral Oil/Petrolatum,White [Refresh P.M.] 1 applic EYEBOTH BEDTIME 10/13/19 [ History] Vit C/E/Zn/Coppr/Lutein/Zeaxan [Preservision Areds 2 Softgel] 1 cap PO DAILY [History] amLODIPine [Norvasc] 2.5 mg PO DAILY 10/13/19 [History] lisinopriL [Lisinopril] 10 mg PO DAILY 10/13/19 [History] Amoxicillin/Clavulanate K [Augmentin 500-125 MG] 1 tab PO TID #15 tablet [Rx] Diltiazem HCl [Cardizem LA] 180 mg PO DAILY #30 tab.sr.24h 10/17/19 [Rx] Propranolol [Inderal] 40 mg PO BID #0 10/17/19 [Rx] Warfarin Sodium [Coumadin] 2.5 mg PO DAILY #30 tablet 10/17/19 [Rx] Past Medical History HEENT History: Reports: Cataract, Hard of Hearing, Impaired Vision Cardiovascular History: Reports: High Cholesterol Respiratory History: Reports: None Gastrointestinal History: Reports: Other (See Below) Other Gastrointestinal History: hernia Genitourinary History: Reports: UTI, Recurrent Other Genitourinary History: Pt has had frequent urinary tract infections. [employer]CTION History: Reports: Musculoskeletal History: Reports: Arthritis, Osteoarthritis Endocrine/Metabolic History: Reports: Hyperthyroidism, Hypothyroidism Oncologic (Cancer) History: Reports: Breast Dermatologic History: Reports: None - Infectious Disease History Infectious Disease History: Reports: Chicken Pox, Measles, Mumps, Pertussis ( Whooping Cough) - Past Surgical History GI Surgical History: Reports: Appendectomy, Cholecystectomy Female Surgical History: Reports: Breast Biopsy, Hysterectomy, Mastectomy Other Female Surgeries/Procedures: Pt had mastecomy 1996 and in 2000. Social & Family History - Tobacco Use Smoking Status *Q: Never Smoker - Caffeine Use Caffeine Use: Reports: Coffee ED ROS GENERAL - Review of Systems Review Of Systems: See Below Constitutional: Reports: No Symptoms HEENT: Reports: No Symptoms Respiratory: Reports: Shortness of Breath. Denies: Wheezing, Cough, Sputum Cardiovascular: Reports: Dyspnea on Exertion, Palpitations, Other (feels okay at rest, quite SOB with exertion). Denies: Chest Pain Endocrine: Reports: No Symptoms GI/Abdominal: Reports: No Symptoms : Reports: No Symptoms Musculoskeletal: Reports: No Symptoms Skin: Reports: No Symptoms, Other (states she has no swelling in her legs despite 2+ edema) Neurological: Reports: No Symptoms Psychiatric: Reports: No Symptoms Hematologic/Lymphatic: Reports: No Symptoms Immunologic: Reports: No Symptoms ED EXAM, GENERAL - Physical Exam Exam: See Below Exam Limited By: No Limitations General Appearance: Alert, WD/WN, No Apparent Distress, Other (quite pleasant, nonill, good eye contact, no dyspnea, no cough, talks in 10-word sentences, no purse lips, no retractions, no accessory muscles) Eye Exam: Bilateral Eye: EOMI, Normal Inspection Ears: Normal External Exam, Hearing Grossly Normal Nose: Normal Inspection, Normal Mucosa, No Blood Throat/Mouth: Normal Inspection, Normal Lips, Normal Gums, Normal Oropharynx, Normal Voice, No Airway Compromise Head: Atraumatic, Normocephalic Neck: Normal Inspection, Supple, Non-Tender, Full Range of Motion. No: Lymphadenopathy (R), Lymphadenopathy (L) Respiratory/Chest: Other (good AE, crackles at L base up 25%, egophony at both bases, no wheeze, irreg irreg, 2/6 KAPIL at LSB, quiet precordirum) Cardiovascular: Other (2+ woody edema to knees b/l, symmetric, trace edema of thighs b/l) GI/Abdominal: Normal Bowel Sounds, Soft, Non-Tender, No Distention Back Exam: Normal Inspection, Full Range of Motion Extremities: Normal Inspection, Non-Tender, Pedal Edema Neurological: Alert, Oriented, CN II-XII Intact, Normal Cognition, No Motor/ Sensory Deficits Psychiatric: Normal Affect, Normal Mood Skin Exam: Warm, Dry, Intact, Normal Color, No Rash Lymphatic: No Adenopathy Course - Vital Signs Last Recorded V/S: Last Vital Signs Temp 36.8 C 10/22/19 15:07 Pulse 115 H 10/22/19 15:07 Resp 23 H 10/22/19 15:07 BP 121/75 10/22/19 15:07 Pulse Ox 95 10/22/19 15:07 - Orders/Labs/Meds Orders: Active Orders 24 hr Category Date Time Status EKG Documentation Completion [RC] ASDIRECTED Care 10/22/19 15:53 Ordered Chest 2V [CR] Stat Exams 10/22/19 17:20 Taken D-DIMER QUANTITATIVE [COAG] Stat Lab 10/22/19 17:27 Ordered EKG 12 Lead [EK] Routine Ther 10/22/19 15:52 Ordered Labs: Laboratory Tests 10/22/19 10/22/19 10/22/19 Range/Units 16:10 16:10 16:10 WBC 7.3 (4.5-12.0) X10-3/uL RBC 3.98 (3.23-5.20) x10(6)uL Hgb 12.2 (11.5-15.5) g/dL Hct 37.7 (30.0-51.3) % MCV 94.8 (80-96) fL MCH 30.7 (27.7-33.6) pg MCHC 32.4 (32.2-35.4) g/dL RDW 14.9 (11.5-15.5) % Plt Count 250 (125-369) X10(3)uL MPV 7.2 L (7.4-10.4) fL Neut % (Auto) 64.9 (46-82) % Lymph % (Auto) 25.6 (13-37) % [place] % (Auto) 7.1 (4-12) % Eos % (Auto) 2 (1.0-5.0) % Baso % (Auto) 1 (0-2) % Neut # (Auto) 4.7 (1.6-8.3) # Lymph # (Auto) 1.9 (0.6-5.0) # [place] # (Auto) 0.5 (0.0-1.3) # Eos # (Auto) 0.1 (0.0-0.8) # Baso # (Auto) 0.1 (0.0-0.2) # PT (9.0-11.1) sec INR (1.00-1.24) Sodium 147 H (135-145) mmol/L Potassium 4.1 (3.5-5.3) mmol/L Chloride 110 (100-110) mmol/L Carbon Dioxide 26 (21-32) mmol/L BUN 14 (7-18) mg/dL Creatinine 1.0 (0.55-1.02) mg/dL Est Cr Clr Drug Dosing 34.87 mL/min Estimated GFR (MDRD) 53 L (>60) BUN/Creatinine Ratio 14.0 (9-20) Glucose 141 H (80-116) mg/dL Lactic Acid (0.4-2.0) mmol/L Calcium 8.6 (8.6-10.2) mg/dL Total Bilirubin 0.6 (0.1-1.3) mg/dL AST 20 D (5-25) IU/L ALT 20 D (12-36) U/L Alkaline Phosphatase 115 H (56-112) IU/L Troponin I 8.6 (4.0-60.3) pg/mL C-Reactive Protein 0.6 (0.5-0.9) mg/dL NT-Pro-B Natriuret Pep 5827 H* (<=450) pg/mL Total Protein 7.6 (6.0-8.0) g/dL Albumin 3.1 L (3.2-4.6) g/dL Globulin 4.5 g/dL Albumin/Globulin Ratio 0.7 TSH, Ultra Sensitive 1.46 (0.36-3.74) IU/mL Urine Color (YELLOW) Urine Appearance (CLEAR) Urine pH (5.0-6.5) Ur Specific [place] (1.010-1.025) Urine Protein (NEGATIVE) mg/dL Urine Glucose (UA) (NORMAL) mg/dL Urine Ketones (NEGATIVE) mg/dL Urine Occult Blood (NEGATIVE) Urine Nitrite (NEGATIVE) Urine Bilirubin (NEGATIVE) Urine Urobilinogen (NEGATIVE) mg/dL Ur Leukocyte Esterase (NEGATIVE) Urine RBC (0-5) Urine WBC (0-5) Ur Squamous Epith Cells (NS,R,O) Urine Bacteria (NS) 10/22/19 10/22/19 10/22/19 Range/Units 16:10 16:10 16:24 WBC (4.5-12.0) X10-3/uL RBC (3.23-5.20) x10(6)uL Hgb (11.5-15.5) g/dL Hct (30.0-51.3) % MCV (80-96) fL MCH (27.7-33.6) pg MCHC (32.2-35.4) g/dL RDW (11.5-15.5) % Plt Count (125-369) X10(3)uL MPV (7.4-10.4) fL Neut % (Auto) (46-82) % Lymph % (Auto) (13-37) % [place] % (Auto) (4-12) % Eos % (Auto) (1.0-5.0) % Baso % (Auto) (0-2) % Neut # (Auto) (1.6-8.3) # Lymph # (Auto) (0.6-5.0) # [place] # (Auto) (0.0-1.3) # Eos # (Auto) (0.0-0.8) # Baso # (Auto) (0.0-0.2) # PT 27.7 H (9.0-11.1) sec INR 2.89 H (1.00-1.24) Sodium (135-145) mmol/L Potassium (3.5-5.3) mmol/L Chloride (100-110) mmol/L Carbon Dioxide (21-32) mmol/L BUN (7-18) mg/dL Creatinine (0.55-1.02) mg/dL Est Cr Clr Drug Dosing mL/min Estimated GFR (MDRD) (>60) BUN/Creatinine Ratio (9-20) Glucose (80-116) mg/dL Lactic Acid 1.5 (0.4-2.0) mmol/L Calcium (8.6-10.2) mg/dL Total Bilirubin (0.1-1.3) mg/dL AST (5-25) IU/L ALT (12-36) U/L Alkaline Phosphatase (56-112) IU/L Troponin I (4.0-60.3) pg/mL C-Reactive Protein (0.5-0.9) mg/dL NT-Pro-B Natriuret Pep (<=450) pg/mL Total Protein (6.0-8.0) g/dL Albumin (3.2-4.6) g/dL Globulin g/dL Albumin/Globulin Ratio TSH, Ultra Sensitive (0.36-3.74) IU/mL Urine Color Yellow (YELLOW) Urine Appearance Clear (CLEAR) Urine pH 5.0 (5.0-6.5) Ur Specific [place] 1.015 (1.010-1.025) Urine Protein Negative (NEGATIVE) mg/dL Urine Glucose (UA) Normal (NORMAL) mg/dL Urine Ketones Negative (NEGATIVE) mg/dL Urine Occult Blood Negative (NEGATIVE) Urine Nitrite Negative (NEGATIVE) Urine Bilirubin Negative (NEGATIVE) Urine Urobilinogen Normal (NEGATIVE) mg/dL Ur Leukocyte Esterase Small H (NEGATIVE) Urine RBC 0-5 (0-5) Urine WBC 5-10 H (0-5) Ur Squamous Epith Cells Few H (NS,R,O) Urine Bacteria Few H (NS) Meds: Medications Discontinued Medications Generic Name Dose Route Start Last Admin Trade Name Freq PRN Reason Stop Dose Admin Furosemide 40 mg 10/22/19 15:54 10/22/19 16:00 Lasix IVPUSH 10/22/19 15:55 40 mg NOW ONE Administration - Re-Assessments/Exams Free Text/Narrative Re-Assessment/Exam: 10/22/19 17:35 labs are nicely improved from 9d ago, however CxR 2v shows b/l pleural effusion of ~25% at bases, no comparison as previous CxR 9d ago was done in the clinic and is not available PO down to 85% when gets up, 95% on RA at rest, will give additional O2 5:45p pt given the option of admission here vs [facility], she was accepted here by Dr Block as well as by Dr Ortiz at [facility], she decided that she preferred to go to [place] to visit directly with cardiology, son is in agreement Departure - Departure Time of Disposition: 17:52 Disposition: DC/Tfer to Acute Hospital 02 Condition: Good Clinical Impression: Acute exacerbation of congestive heart failure, Bilateral pleural effusion, Hypoxia, Dyspnea on exertion, Chronic renal insufficiency - Discharge Information *PRESCRIPTION DRUG MONITORING PROGRAM REVIEWED*: Not Applicable *COPY OF PRESCRIPTION DRUG MONITORING REPORT IN PATIENT AUGUST: Not Applicable Referrals: David Scott MD [Primary Care Provider] - Forms: ED Department Discharge Sepsis Event Note - Evaluation Sepsis Screening Result: No Definite Risk - Focused Exam Vital Signs: Vital Signs Temp Pulse Resp BP Pulse Ox 10/22/19 15:07 36.8 C 115 H 23 H 121/75 95 Date Exam was Performed: 10/22/19 Time Exam was Performed: 17:32 - My Orders Last 24 Hours: My Active Orders 10/22/19 15:52 EKG 12 Lead [EK] Routine 10/22/19 15:53 EKG Documentation Completion [RC] ASDIRECTED 10/22/19 17:20 Chest 2V [CR] Stat 10/22/19 17:27 D-DIMER QUANTITATIVE [COAG] Stat - Assessment/Plan Last 24 Hours: My Active Orders 10/22/19 15:52 EKG 12 Lead [EK] Routine 10/22/19 15:53 EKG Documentation Completion [RC] ASDIRECTED 10/22/19 17:20 Chest 2V [CR] Stat 10/22/19 17:27 D-DIMER QUANTITATIVE [COAG] Stat
[2019-10-22 19:07] VITALS: BP 128/69; PULSE 109
--- NOTE | 2019-10-23 11:21 | CR ---
INDICATION: Short of breath. CHEST, TWO VIEWS: AP and lateral views of the chest, 10/22/2019 were compared with 01/18/2018 and 11/05/2017. The heart did not appear to be enlarged. There is a mass behind the heart. It is large and compatible with a large fixed hiatal hernia, although other mass cannot be excluded with this appearance, even large aortic aneurysm. This should be correlated clinically. Evidence of previous axillary node dissection is noted on the right. The aorta is calcified in the arch area and proximal descending portion. Extensive kyphosis is noted with some minimal anterior compressions of indeterminate age. Findings compatible with COPD are noted. Bibasilar pleuroparenchymal changes are noted, which may be on the basis of pneumonia and pleuritis. No definite CHF is seen. Diminished bone density is suggested which could be on the basis of osteomalacia or osteoporosis and should be correlated clinically. IMPRESSION: 1. Probable COPD. 2. Bibasilar pleuroparenchymal changes, right greater than left, may be on the basis of pneumonia and pleuritis, although some atelectasis may also be present- correlate clinically. 3. ASD aorta. 4. Large mass behind the heart, may represent a large fixed hiatal hernia, but other etiology-even aortic aneurysm, cannot be excluded. 5. Demineralization. MTDD
== END 2019-10-22 18:49 ==
LOC: FB.ED 15:07
DX: I50.9 Heart failure, unspecified (principal); N18.9 Chronic kidney disease, unspecified; R09.02 Hypoxemia; E78.00 Pure hypercholesterolemia, unspecified; E05.90 Thyrotoxicosis, unspecified without thyrotoxic crisis or storm; Z88.1 Allergy status to other antibiotic agents; Z91.012 Allergy to eggs; Z79.899 Other long term (current) drug therapy; Z79.01 Long term (current) use of anticoagulants; Z85.3 Personal history of malignant neoplasm of breast
CPT/HCPCS: 36415; 71046; 80053; 81001; 83605; 83880; 84443; 84484; 85025; 85379; 85610; 86140; 93005; 93010; 96374; 99285; J1940

== ENCOUNTER 2020-12-12 16:39 | Emergency (ER) | payer MEDICARE ==
[2020-12-12] MEDS ORDERED: Sodium Chloride 0.9% 10 ML Syringe FLUSH PRN (17:05)
[2020-12-12] MEDS ORDERED: Aspirin 81 MG Tab.Chew PO STA (17:07)
[2020-12-12] MEDS ORDERED: Ketorolac 30 MG/ML SDV IVPUSH STA (17:08)
--- NOTE | 2020-12-12 17:11 | EDM.PDOC ---
ED HPI GENERAL MEDICAL PROBLEM - General Chief Complaint: Chest Pain Stated Complaint: SOB/CHEST PAIN Time Seen by Provider: 12/12/20 16:45 Source of Information: Reports: Patient History Limitations: Reports: No Limitations - History of Present Illness INITIAL COMMENTS - FREE TEXT/NARRATIVE: Patient presented to the ED because chest pain over the left chest for the past month. The pain is sharp,7/10, and is pleuritic type. There is no associated N/V but c/o dyspnea at times. There is no cough/cold, fever, or chills. - Related Data Allergies Allergy/AdvReac Type Severity Reaction Status Date / Time ciprofloxacin Allergy Rash Verified 10/13/19 14:55 EGGS Allergy Other Uncoded 10/13/19 14:55 Home Meds: Home Meds Omeprazole 20 mg PO BIDAC 06/19/13 [History] methIMAzole [Tapazole] 15 mg PO DAILY 06/19/13 [History] Acetaminophen [Tylenol Arthritis] 650 mg PO BID 10/13/19 [History] Acetaminophen with Codeine [Tylenol with Codeine #3 Tablet] 1 tab PO Q6H PRN 10/13/19 [History] Carboxymethylcellulose Sodium [Refresh Tears] 1 drop EYEBOTH TID PRN 10/13/19 [History] Doxycycline Hyclate 100 mg PO BID 10/13/19 [History] Furosemide [Lasix] 20 mg PO DAILY 10/13/19 [History] Loratadine [Claritin] 10 mg PO DAILY PRN 10/13/19 [History] Mineral Oil/Petrolatum,White [Refresh P.M.] 1 applic EYEBOTH BEDTIME 10/13/19 [History] Vit C/E/Zn/Coppr/Lutein/Zeaxan [Preservision Areds 2 Softgel] 1 cap PO DAILY 10/13/19 [History] amLODIPine [Norvasc] 2.5 mg PO DAILY 10/13/19 [History] lisinopriL [Lisinopril] 10 mg PO DAILY 10/13/19 [History] Amoxicillin/Clavulanate K [Augmentin 500-125 MG] 1 tab PO TID #15 tablet 10/17/19 [Rx] Diltiazem HCl [Cardizem LA] 180 mg PO DAILY #30 tab.sr.24h 10/17/19 [Rx] Propranolol [Inderal] 40 mg PO BID #0 10/17/19 [Rx] Warfarin Sodium [Coumadin] 2.5 mg PO DAILY #30 tablet 10/17/19 [Rx] predniSONE [Prednisone] 20 mg PO DAILY #7 tablet 12/12/20 [Rx] Past Medical History HEENT History: Reports: Cataract, Hard of Hearing, Impaired Vision Cardiovascular History: Reports: High Cholesterol Respiratory History: Reports: None Gastrointestinal History: Reports: Other (See Below) Other Gastrointestinal History: hernia Genitourinary History: Reports: UTI, Recurrent Other Genitourinary History: Pt has had frequent urinary tract infections. 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 Social & Family History - Caffeine Use Caffeine Use: Reports: Coffee ED ROS GENERAL - Review of Systems Review Of Systems: See Below Constitutional: Reports: No Symptoms HEENT: Reports: No Symptoms Respiratory: Reports: Shortness of Breath Cardiovascular: Reports: Chest Pain Endocrine: Reports: No Symptoms GI/Abdominal: Reports: No Symptoms : Reports: No Symptoms Musculoskeletal: Reports: No Symptoms Skin: Reports: No Symptoms Neurological: Reports: No Symptoms Psychiatric: Reports: No Symptoms ED EXAM, GENERAL - Physical Exam Exam: See Below Exam Limited By: No Limitations General Appearance: Alert, No Apparent Distress Eye Exam: Bilateral Eye: PERRL Ears: Normal External Exam, Normal Canal Nose: Normal Inspection, Normal Mucosa, No Blood Throat/Mouth: Normal Inspection, Normal Lips Head: Atraumatic, Normocephalic Neck: Normal Inspection, Supple, Non-Tender, Full Range of Motion Respiratory/Chest: No Respiratory Distress, Lungs Clear, Normal Breath Sounds, Other (tenderness over the left chest wall) Cardiovascular: Normal Peripheral Pulses, Regular Rate, Rhythm, No Edema GI/Abdominal: Normal Bowel Sounds, Soft, Non-Tender, No Organomegaly #1 Interpretation EKG Date: 12/12/20 Time: 16:40 Rhythm: NSR [place]: Normal P-Wave: Present QRS: Normal ST-T: Normal QT: Normal EKG Interpretation Comments: NSR LVH Course - Vital Signs Text/Narrative:: Lab/EKG/CXR result was reviewed and discussed with patient and her daughter ASA 324 mg PO x1 Toradol 15 mg IV x1 Last Recorded V/S: Last Vital Signs Temp 37.1 C 12/12/20 16:40 Pulse 63 12/12/20 16:40 Resp 16 12/12/20 16:40 BP 145/61 H 12/12/20 16:40 Pulse Ox 98 12/12/20 16:40 - Orders/Labs/Meds Orders: Active Orders 24 hr Category Date Time Status EKG Documentation Completion [RC] STAT Care 12/12/20 17:05 Active Chest 1V Frontal [CR] Stat Exams 12/12/20 17:05 Taken Sodium Chloride 0.9% [Saline Flush] Med 12/12/20 17:05 Active 10 ml FLUSH ASDIRECTED PRN Saline Lock Insert [OM.PC] Routine Oth 12/12/20 17:05 Ordered Medication Orders Sodium Chloride (Sodium Chloride 0.9% 10 Ml Syringe) 10 ml FLUSH ASDIRECTED PRN PRN Reason: Keep Vein Open Last Admin: 12/12/20 16:45 Dose: 10 ml Documented by: PAMELA Labs: Laboratory Tests 12/12/20 12/12/20 12/12/20 Range/Units 17:00 17:00 17:00 WBC 8.6 (3.0-10.3) x10-3/uL RBC 3.65 (3.60-5.20) x10(6)uL Hgb 11.3 L (11.4-15.5) g/dL Hct 34.7 (34.2-48.2) % MCV 95.1 (76.7-100.5) fL MCH 30.8 (23.9-33.9) pg MCHC 32.4 (31.9-34.8) g/dL RDW 12.5 (12.3-16.5) % Plt Count 289 (151-488) x10(3)uL MPV 7.8 (7.1-12.4) fL Neut % (Auto) 55.9 (30.8-76.2) % Lymph % (Auto) 33.0 (18.4-52.1) % [place] % (Auto) 8.8 (4.4-15.7) % Eos % (Auto) 1.9 (0.6-8.1) % Baso % (Auto) 0.4 (0.2-1.5) % Neut # (Auto) 4.8 (1.5-6.3) x10-3/uL Lymph # (Auto) 2.8 (1.0-4.4) x10-3/uL [place] # (Auto) 0.8 (0.3-1.0) x10-3/uL Eos # (Auto) 0.2 (0.0-0.8) x10-3/uL Baso # (Auto) 0.0 (0.0-0.1) x10-3/uL PT 23.8 H (9.0-11.1) sec INR 2.32 H (1.00-1.24) Sodium 142 (135-145) mmol/L Potassium 4.0 (3.5-5.3) mmol/L Chloride 105 (100-110) mmol/L Carbon Dioxide 29 (21-32) mmol/L BUN 28 H (7-18) mg/dL Creatinine 1.2 H (0.55-1.02) mg/dL Est Cr Clr Drug Dosing TNP Estimated GFR (MDRD) 42 L (>60) BUN/Creatinine Ratio 23.3 H (9-20) Glucose 237 H D (80-116) mg/dL Calcium 8.5 L (8.6-10.2) mg/dL Total Bilirubin 0.4 (0.1-1.3) mg/dL AST 46 H D (5-25) IU/L ALT 52 H D (12-36) U/L Alkaline Phosphatase 252 H (56-112) IU/L Troponin I (4.0-60.3) pg/mL NT-Pro-B Natriuret Pep (<=450) pg/mL Total Protein 7.7 (6.0-8.0) g/dL Albumin 3.1 L (3.2-4.6) g/dL Globulin 4.6 g/dL Albumin/Globulin Ratio 0.7 // Range/Units 17:00 WBC (3.0-10.3) x10-3/uL RBC (3.60-5.20) x10(6)uL Hgb (11.4-15.5) g/dL Hct (34.2-48.2) % MCV (76.7-100.5) fL MCH (23.9-33.9) pg MCHC (31.9-34.8) g/dL RDW (12.3-16.5) % Plt Count (151-488) x10(3)uL MPV (7.1-12.4) fL Neut % (Auto) (30.8-76.2) % Lymph % (Auto) (18.4-52.1) % [place] % (Auto) (4.4-15.7) % Eos % (Auto) (0.6-8.1) % Baso % (Auto) (0.2-1.5) % Neut # (Auto) (1.5-6.3) x10-3/uL Lymph # (Auto) (1.0-4.4) x10-3/uL [place] # (Auto) (0.3-1.0) x10-3/uL Eos # (Auto) (0.0-0.8) x10-3/uL Baso # (Auto) (0.0-0.1) x10-3/uL PT (9.0-11.1) sec INR (1.00-1.24) Sodium (135-145) mmol/L Potassium (3.5-5.3) mmol/L Chloride (100-110) mmol/L Carbon Dioxide (21-32) mmol/L BUN (7-18) mg/dL Creatinine (0.55-1.02) mg/dL Est Cr Clr Drug Dosing Estimated GFR (MDRD) (>60) BUN/Creatinine Ratio (9-20) Glucose (80-116) mg/dL Calcium (8.6-10.2) mg/dL Total Bilirubin (0.1-1.3) mg/dL AST (5-25) IU/L ALT (12-36) U/L Alkaline Phosphatase (56-112) IU/L Troponin I 4.4 (4.0-60.3) pg/mL NT-Pro-B Natriuret Pep 1332 H* (<=450) pg/mL Total Protein (6.0-8.0) g/dL Albumin (3.2-4.6) g/dL Globulin g/dL Albumin/Globulin Ratio Meds: Medications Generic Name Dose Route Start Last Admin Trade Name Clement PRN Reason Stop Dose Admin Sodium Chloride 10 ml 12/12/20 17:05 12/12/20 16:45 Sodium Chloride 0.9% 10 Ml Syringe FLUSH 10 ml ASDIRECTED PRN Administration Keep Vein Open Discontinued Medications Generic Name Dose Route Start Last Admin Trade Name Clement PRN Reason Stop Dose Admin Aspirin 324 mg 12/12/20 17:07 12/12/20 17:27 Aspirin 81 Mg Tab.Chew PO 12/12/20 17:08 324 mg NOW STA Administration Ketorolac Tromethamine 15 mg 12/12/20 17:08 12/12/20 17:17 Ketorolac 30 Mg/Ml Sdv IVPUSH 12/12/20 17:09 15 mg NOW STA Administration Departure - Departure Time of Disposition: 18:15 Disposition: Home, Self-Care 01 Condition: Good Clinical Impression: Chest wall pain, CKD (chronic kidney disease), Dehydration Prescriptions: predniSONE [Prednisone] 20 mg PO DAILY #7 tablet Instructions: Chest Wall Pain, [id number], Dehydration, Adult, [id number], Chronic Kidney Disease, Adult, [id number] Referrals: David Scott MD [Primary Care Provider] - Forms: ED Department Discharge Additional Instructions: please read discharge instructions on chest wall pain and CKD, dehydration do no take your water pill lasix/furosemide for 3 days-Wed/Wed/Wed-resume taking it on Wednesday prednisone 20 mg daily for 7 days follow up as needed Sepsis Event Note (ED) - Focused Exam Vital Signs: Vital Signs Temp Pulse Resp BP Pulse Ox 12/12/20 16:40 37.1 C 63 16 145/61 H 98 - My Orders Last 24 Hours: My Active Orders 12/12/20 17:05 EKG Documentation Completion [RC] STAT Chest 1V Frontal [CR] Stat Sodium Chloride 0.9% [Saline Flush] 10 ml FLUSH ASDIRECTED PRN Saline Lock Insert [OM.PC] Routine - Assessment/Plan Last 24 Hours: My Active Orders 12/12/20 17:05 EKG Documentation Completion [RC] STAT Chest 1V Frontal [CR] Stat Sodium Chloride 0.9% [Saline Flush] 10 ml FLUSH ASDIRECTED PRN Saline Lock Insert [OM.PC] Routine
[2020-12-12 19:28] VITALS: BP 136/93; PULSE 56
--- NOTE | 2020-12-13 13:25 | CR ---
CHEST ONE VIEW [id number] INDICATION: Chest pain. Dyspnea. An AP upright portable view of the chest was obtained 12/12/2020 and compared with 10/22/2019 and 01/18/2018. The heart appears enlarged. The aorta is tortuous. There is suggestion of a scoliosis dextroconvex upper middle thoracic spine. The lungs appear to be hyperaerated without a definite active infiltrate or effusion. Overlying EKG leads are noted. Clips are noted in the right axilla. Although a consolidating pneumonia or effusion was not identified, the possibility of some minimal patchy bronchopneumonia at the lung bases is difficult to entirely exclude due to somewhat heavy markings present. These are partly due to poor inspiration and possibly partly on the basis of fibrosis but should be correlated clinically. IMPRESSION: 1. No definite acute process. 2. Probable COPD. 3. ASHD. 4. Postsurgical changes right axilla likely on the basis of axillary node dissection. 5. Scoliosis. MTDD
== END 2020-12-12 19:05 | disposition home or self-care (01) ==
LOC: FB.ED 16:39
DX: R07.89 Other chest pain (principal); N18.6 End stage renal disease; E86.0 Dehydration; E03.9 Hypothyroidism, unspecified; E78.00 Pure hypercholesterolemia, unspecified; Z79.899 Other long term (current) drug therapy; Z79.01 Long term (current) use of anticoagulants; Z88.1 Allergy status to other antibiotic agents; Z91.012 Allergy to eggs
CPT/HCPCS: 36415; 71045; 80053; 83880; 84484; 85025; 85610; 93005; 96374; 99285-25; A9270-GY; J1885

== ENCOUNTER 2021-02-11 15:47 | Emergency (ER) | payer MEDICARE ==
[2021-02-11 16:18] VITALS: BP 123/64; PULSE 66
[2021-02-11] MEDS ORDERED: Meclizine 25 MG Tab PO ONE (16:22)
--- NOTE | 2021-02-11 18:09 | EDM.PDOC ---
ED HPI GENERAL MEDICAL PROBLEM - General Chief Complaint: General Stated Complaint: DIZZINESS Time Seen by Provider: 02/11/21 15:50 Source of Information: Reports: Patient History Limitations: Reports: No Limitations - History of Present Illness INITIAL COMMENTS - FREE TEXT/NARRATIVE: Patient presented to the ED because of dizziness and dry cough. there is no fever,chills, palpitations or chest pain. She has a history of chronic vertigo and is taking meclizine 15 mg PRN for it. - Related Data Allergies Allergy/AdvReac Type Severity Reaction Status Date / Time ciprofloxacin Allergy Rash Verified 10/13/19 14:55 EGGS Allergy Other Uncoded 10/13/19 14:55 Home Meds: Home Meds Omeprazole 20 mg PO BIDAC 06/19/13 [History] methIMAzole [Tapazole] 15 mg PO DAILY 06/19/13 [History] Acetaminophen [Tylenol Arthritis] 650 mg PO BID 10/13/19 [History] Acetaminophen with Codeine [Tylenol with Codeine #3 Tablet] 1 tab PO Q6H PRN 10/13/19 [History] Carboxymethylcellulose Sodium [Refresh Tears] 1 drop EYEBOTH TID PRN 10/13/19 [History] Doxycycline Hyclate 100 mg PO BID 10/13/19 [History] Furosemide [Lasix] 20 mg PO DAILY 10/13/19 [History] Loratadine [Claritin] 10 mg PO DAILY PRN 10/13/19 [History] Mineral Oil/Petrolatum,White [Refresh P.M.] 1 applic EYEBOTH BEDTIME 10/13/19 [History] Vit C/E/Zn/Coppr/Lutein/Zeaxan [Preservision Areds 2 Softgel] 1 cap PO DAILY 10/13/19 [History] amLODIPine [Norvasc] 2.5 mg PO DAILY 10/13/19 [History] lisinopriL [Lisinopril] 10 mg PO DAILY 10/13/19 [History] Amoxicillin/Clavulanate K [Augmentin 500-125 MG] 1 tab PO TID #15 tablet 10/17/19 [Rx] Diltiazem HCl [Cardizem LA] 180 mg PO DAILY #30 tab.sr.24h 10/17/19 [Rx] Propranolol [Inderal] 40 mg PO BID #0 10/17/19 [Rx] Warfarin Sodium [Coumadin] 2.5 mg PO DAILY #30 tablet 10/17/19 [Rx] predniSONE [Prednisone] 20 mg PO DAILY #7 tablet 12/12/20 [Rx] Meclizine [Antivert] 25 mg PO Q6H PRN #15 tab 02/11/21 [Rx] Azithromycin [Zithromax] 250 mg PO DAILY #6 tablet 02/12/21 [Rx] Past Medical History HEENT History: Reports: Cataract, Hard of Hearing, Impaired Vision Cardiovascular History: Reports: High Cholesterol Respiratory History: Reports: None Gastrointestinal History: Reports: Other (See Below) Other Gastrointestinal History: hernia Genitourinary History: Reports: UTI, Recurrent Other Genitourinary History: Pt has had frequent urinary tract infections. 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: Musculoskeletal History: Reports: Arthritis, Osteoarthritis Endocrine/Metabolic History: Reports: Hyperthyroidism, Hypothyroidism Oncologic (Cancer) History: Reports: Breast Dermatologic History: Reports: None - Infectious Disease History Infectious Disease History: Reports: Chicken Pox, Measles, Mumps, Pertussis (Whooping Cough) - Past Surgical History HEENT Surgical History: Reports: Cataract Surgery Cardiovascular Surgical History: Reports: Other (See Below) Other Cardiovascular Surgeries/Procedures: ablation done twice GI Surgical History: Reports: Appendectomy, Cholecystectomy Female Surgical History: Reports: Breast Biopsy, Hysterectomy, Mastectomy Other Female Surgeries/Procedures: Pt had mastecomy 1996 and in 2000. Musculoskeletal Surgical History: Reports: Hip Replacement Other Musculoskeletal Surgeries/Procedures:: right total hip Oncologic Surgical History: Reports: Mastectomy Other Oncologic Surgeries/Procedures: mastectomy bilateral Social & Family History - Family History Family Medical History: No Pertinent Family History - Tobacco Use Tobacco Use Status *Q: Never Tobacco User - Caffeine Use Caffeine Use: Reports: Coffee Caffeine Use Comment: 2 cups/day - Recreational Drug Use Recreational Drug Use: No ED ROS GENERAL - Review of Systems Review Of Systems: See Below Constitutional: Reports: No Symptoms HEENT: Reports: No Symptoms Respiratory: Reports: Cough Cardiovascular: Reports: No Symptoms Endocrine: Reports: No Symptoms GI/Abdominal: Reports: No Symptoms : Reports: No Symptoms Musculoskeletal: Reports: No Symptoms Skin: Reports: No Symptoms Neurological: Reports: Dizziness Psychiatric: Reports: No Symptoms Hematologic/Lymphatic: Reports: No Symptoms ED EXAM, GENERAL - Physical Exam Exam: See Below Exam Limited By: No Limitations General Appearance: Alert, No Apparent Distress Eye Exam: Bilateral Eye: PERRL Ears: Normal External Exam, Normal Canal Nose: Normal Inspection, Normal Mucosa, No Blood Throat/Mouth: Normal Inspection, Normal Lips, Normal Teeth, Normal Gums Head: Atraumatic, Normocephalic Neck: Normal Inspection, Supple, Non-Tender, Full Range of Motion Respiratory/Chest: No Respiratory Distress, Lungs Clear, Normal Breath Sounds Cardiovascular: Normal Peripheral Pulses, Regular Rate, Rhythm, No Edema, No Gallop, No JVD, No Murmur, No Rub GI/Abdominal: Normal Bowel Sounds, Soft, Non-Tender, No Organomegaly, No Distention, No Abnormal Bruit Back Exam: Normal Inspection, Full Range of Motion Extremities: Normal Inspection, Normal Range of Motion, Non-Tender Neurological: Alert, Oriented, CN II-XII Intact Psychiatric: Normal Affect, Normal Mood Skin Exam: Warm #1 Interpretation EKG Date: 02/11/21 Time: 16:02 Rhythm: NSR Rate (Beats/Min): 63 [place]: Normal P-Wave: Present QRS: Normal ST-T: Normal QT: Normal Comparison: NA - No Prior EKG EKG Interpretation Comments: NSR LAE Course - Vital Signs Text/Narrative:: Lab/EKG/CXR result was reviewed an discussed with patient Meclizine 25 mg PO x1 Last Recorded V/S: Last Vital Signs Temp 36.8 C 02/11/21 15:47 Pulse 66 02/11/21 15:47 Resp 16 02/11/21 15:47 BP 123/64 02/11/21 15:47 Pulse Ox 95 02/11/21 15:47 - Orders/Labs/Meds Orders: Active Orders 24 hr Category Date Time Status EKG 12 Lead [EK] Routine Ther 02/11/21 16:09 Ordered Labs: Laboratory Tests 02/11/21 02/11/21 02/11/21 Range/Units 16:30 16:30 17:35 WBC 14.1 H (3.0-10.3) x10-3/uL RBC 3.58 L (3.60-5.20) x10(6)uL Hgb 10.8 L (11.4-15.5) g/dL Hct 33.3 L (34.2-48.2) % MCV 93.1 (76.7-100.5) fL MCH 30.1 (23.9-33.9) pg MCHC 32.3 (31.9-34.8) g/dL RDW 12.2 L (12.3-16.5) % Plt Count 318 (151-488) x10(3)uL MPV 7.3 (7.1-12.4) fL Neut % (Auto) 67.3 (30.8-76.2) % Lymph % (Auto) 23.6 (18.4-52.1) % [place] % (Auto) 8.5 (4.4-15.7) % Eos % (Auto) 0.2 L (0.6-8.1) % Baso % (Auto) 0.4 (0.2-1.5) % Neut # (Auto) 9.5 H (1.5-6.3) x10-3/uL Lymph # (Auto) 3.3 (1.0-4.4) x10-3/uL [place] # (Auto) 1.2 H (0.3-1.0) x10-3/uL Eos # (Auto) 0.0 (0.0-0.8) x10-3/uL Baso # (Auto) 0.1 (0.0-0.1) x10-3/uL Sodium 142 (135-145) mmol/L Potassium 3.8 (3.5-5.3) mmol/L Chloride 105 (100-110) mmol/L Carbon Dioxide 27 (21-32) mmol/L BUN 20 H (7-18) mg/dL Creatinine 1.0 (0.55-1.02) mg/dL Est Cr Clr Drug Dosing 33.58 mL/min Estimated GFR (MDRD) 52 L (>60) BUN/Creatinine Ratio 20.0 (9-20) Glucose 157 H D (80-116) mg/dL Calcium 8.7 (8.6-10.2) mg/dL Urine Color Yellow (YELLOW) Urine Appearance Clear (CLEAR) Urine pH 6.0 (5.0-6.5) Ur Specific [place] 1.015 (1.010-1.025) Urine Protein Negative (NEGATIVE) mg/dL Urine Glucose (UA) Normal (NORMAL) mg/dL Urine Ketones Negative (NEGATIVE) mg/dL Urine Occult Blood Negative (NEGATIVE) Urine Nitrite Negative (NEGATIVE) Urine Bilirubin Negative (NEGATIVE) Urine Urobilinogen Normal (NEGATIVE) mg/dL Ur Leukocyte Esterase Negative (NEGATIVE) Urine RBC 0-5 (0-5) Urine WBC 0-5 (0-5) Ur Squamous Epith Cells Occasional (NS,R,O) Urine Bacteria Occasional H (NS) Meds: Medications Discontinued Medications Generic Name Dose Route Start Last Admin Trade Name Freq PRN Reason Stop Dose Admin Meclizine HCl 25 mg 02/11/21 16:22 02/11/21 16:29 Meclizine 25 Mg Tab PO 02/11/21 16:23 25 mg ONETIME ONE Administration Departure - Departure Time of Disposition: 18:00 Disposition: Home, Self-Care 01 Condition: Good Clinical Impression: Dehydration, Vertigo, Pneumonia - Discharge Information Prescriptions: Meclizine [Antivert] 25 mg PO Q6H PRN #15 tab PRN Reason: vertigo Azithromycin [Zithromax] 250 mg PO DAILY #6 tablet Instructions: Vertigo, [id number], Dehydration, Elderly, [id number], Community-Acquired Pneumonia, Adult, [id number], Community-Acquired Pneumonia, Adult Referrals: David Scott MD [Primary Care Provider] - Forms: ED Department Discharge Additional Instructions: Drink at least 1 Liter of water a day Meclizine 25 mg every 6 hours as needed for dizziness Drink at least 1 liter of water a day Zpak as directed Call us with regards to the list of medications that you are taking Follow up as needed especially when you develop fever, cough/cold Sepsis Event Note (ED) - Evaluation Sepsis Screening Result: No Definite Risk - My Orders Last 24 Hours: My Active Orders 02/11/21 16:09 EKG 12 Lead [EK] Routine - Assessment/Plan Last 24 Hours: My Active Orders 02/11/21 16:09 EKG 12 Lead [EK] Routine
--- NOTE | 2021-02-12 11:23 | CR ---
INDICATION: Cough. Elevated white blood count. CHEST ONE VIEW: AP upright view of the chest was obtained 02/11/21 portable, and compared with 12/12/20 and 10/22/19. Mass behind the heart is again noted likely representing a large fixed hiatal hernia - correlate clinically. Other mass cannot be excluded. The heart appeared enlarged. Overlying EKG leads are noted. The aorta is calcified in the arch area and descending portion and mildly tortuous. Accentuated dorsal kyphosis is suggested with rotation of the chest to the left. Findings suggesting COPD are noted. Clips are noted in the right axilla compatible with axillary node dissection - correlate clinically. There are heavy markings at the left lower lobe suggesting possibility of pneumonia in that area. Degenerative changes are noted at the glenohumeral joints. IMPRESSION: 1. Possible pneumonia at the left lung base - lower lobe. 2. Probable large fixed hiatal hernia with mass behind the heart - CT would be confirmatory as necessary. 3. Probable ASHD. 4. Axillary node dissection on the right. 5. Probable COPD. Report was called to Dr. Singh at 1034 hours 02/12/21. MTDD
== END 2021-02-11 18:25 | disposition home or self-care (01) ==
LOC: FB.ED 15:47
DX: J18.9 Pneumonia, unspecified organism (principal); R42 Dizziness and giddiness; E86.0 Dehydration; E78.00 Pure hypercholesterolemia, unspecified; E03.9 Hypothyroidism, unspecified; Z79.01 Long term (current) use of anticoagulants; Z79.899 Other long term (current) drug therapy; Z88.1 Allergy status to other antibiotic agents; Z91.012 Allergy to eggs
CPT/HCPCS: 36415; 71045; 80048; 81001; 85025; 93005; 93010; 99283; 99284-25; A9270-GY

== ENCOUNTER 2021-11-05 10:04 | Emergency (ER) | payer MEDICARE ==
[2021-11-05] MEDS ORDERED: traMADol 50 MG Tab PO STA (10:38)
[2021-11-05] MEDS ORDERED: Ketorolac 30 MG/ML SDV IVPUSH STA (10:38)
[2021-11-05 12:35] VITALS: BP 172/86; PULSE 57
== END 2021-11-05 14:20 | disposition home or self-care (01) ==
LOC: FB.ED 10:04 → SUPCPDRO 10:04 → FB.ED 14:20
DX: M79.651 Pain in right thigh (principal); E78.00 Pure hypercholesterolemia, unspecified; E03.9 Hypothyroidism, unspecified; M19.90 Unspecified osteoarthritis, unspecified site; Z91.012 Allergy to eggs; Z88.1 Allergy status to other antibiotic agents; Z79.899 Other long term (current) drug therapy; Z79.01 Long term (current) use of anticoagulants
CPT/HCPCS: 36415; 80048; 85025; 85379; 93971; 96374; 99282; 99284; A9270; J1885

== ENCOUNTER 2022-03-19 16:21 | Inpatient (IN) | payer MEDICARE ==
[2022-03-19 17:38] LABS: ESTIMATED GFR 39 mL/min (>60)
[2022-03-19] MEDS ORDERED: Diltiazem 25 MG/5 ML SDV IVPUSH ONE ×2 (18:34→21:57)
[2022-03-19] MEDS: Sodium Chloride 0.9% 10 ML Syringe FLUSH PRN ×3 (18:39→21:57)
[2022-03-19] MEDS ORDERED: cefTRIAXone 1 GM Vial IVPUSH ONE (20:22)
[2022-03-19] MEDS ORDERED: Ondansetron 4 MG/2 ML SDV IV PRN (21:42)
[2022-03-19] MEDS ORDERED: Acetaminophen 325 MG Tab PO PRN (21:42)
[2022-03-19] MEDS ORDERED: Sodium Chloride 0.9% 500 ML IV SCH (21:45)
[2022-03-19] MEDS ORDERED: Pantoprazole 40 MG Vial ONE (22:19)
[2022-03-19] MEDS ORDERED: Diltiazem 125 MG/25 ML SDV ONE (22:21)
[2022-03-19] MEDS ORDERED: Diltiazem 25 MG/5 ML SDV ONE (22:23)
[2022-03-19] MEDS: Pantoprazole 40 MG Vial IVPUSH SCH (22:24)
[2022-03-19] MEDS ORDERED: Sodium Chloride 0.9% 500 ML IV ONE (23:38)
[2022-03-20] MEDS: Doxycycline 100 MG in Sodium Chloride 0.9% 100 ML IV SCH ×3 (01:04→21:48)
[2022-03-20] MEDS ORDERED: Flecainide 100 MG Tab PO ONE (01:19)
[2022-03-20] MEDS ORDERED: Magnesium Sulfate/Water 2 GM in Premix Bag 1 BAG IV ONE (02:34)
[2022-03-20 06:35] LABS: ESTIMATED GFR 48 mL/min (>60)
[2022-03-20] MEDS: Pantoprazole 40 MG Vial IVPUSH SCH (09:04)
[2022-03-20] MEDS: Sodium Chloride 0.9% 10 ML Syringe FLUSH PRN ×5 (09:06→21:50)
[2022-03-20] MEDS ORDERED: Fluticasone NASAL Spray 16 GM Bottle NASBOTH PRN (09:23)
[2022-03-20] MEDS ORDERED: Loratadine 10 MG Tab PO PRN (09:23)
[2022-03-20] MEDS ORDERED: Diclofenac Sodium 1% Gel 100 GM Tube TOP PRN (09:23)
[2022-03-20] MEDS ORDERED: Warfarin 2.5 MG Tab PO SCH ×2 (09:30→16:00)
[2022-03-20] MEDS: Methimazole 5 MG Tab PO SCH (10:27)
[2022-03-20] MEDS: Acetaminophen 650 MG Tab.ER PO SCH ×3 (10:27→21:12)
[2022-03-20] MEDS: Lutein/Minerals/Vitamin C/Vitamin E Acetate Cap PO SCH (10:28)
[2022-03-20] MEDS: Pantoprazole 40 MG Tab.CR PO SCH ×2 (10:28→17:28)
[2022-03-20] MEDS: Flecainide 100 MG Tab PO SCH ×2 (10:28→21:14)
[2022-03-20] MEDS: Phytonadione 100 MCG Tab PO SCH (10:29)
[2022-03-20] MEDS: Cholecalciferol (Vitamin D3) 25 MCG Tab PO SCH (10:29)
[2022-03-20] MEDS: Loperamide 2 MG Cap PO SCH ×2 (10:30→17:26)
[2022-03-20] MEDS ORDERED: Warfarin Sliding Scale PO SCH (16:00)
[2022-03-20] MEDS ORDERED: Loperamide 2 MG Cap PO PRN (19:51)
[2022-03-20] MEDS: Mineral Oil/Petrolatum Ophth Oint 3.5 GM Tube EYEBOTH SCH (21:11)
[2022-03-20] MEDS: cefTRIAXone 1 GM Vial IVPUSH SCH (21:16)
[2022-03-21] MEDS: Pantoprazole 40 MG Tab.CR PO SCH ×2 (06:35→16:42)
[2022-03-21 06:40] LABS: ESTIMATED GFR 54 mL/min (>60)
[2022-03-21] MEDS: Lutein/Minerals/Vitamin C/Vitamin E Acetate Cap PO SCH (08:30)
[2022-03-21] MEDS: Methimazole 5 MG Tab PO SCH (08:30)
[2022-03-21] MEDS: Acetaminophen 650 MG Tab.ER PO SCH ×3 (08:31→21:44)
[2022-03-21] MEDS: Flecainide 100 MG Tab PO SCH (08:31)
[2022-03-21] MEDS: Phytonadione 100 MCG Tab PO SCH (08:32)
[2022-03-21] MEDS: Cholecalciferol (Vitamin D3) 25 MCG Tab PO SCH (08:32)
[2022-03-21] MEDS ORDERED: Warfarin 2.5 MG Tab PO SCH (09:23)
[2022-03-21] MEDS: Sodium Chloride 0.9% 10 ML Syringe FLUSH PRN ×3 (10:39→21:51)
[2022-03-21] MEDS: Doxycycline 100 MG in Sodium Chloride 0.9% 100 ML IV SCH ×2 (10:40→21:48)
[2022-03-21] MEDS: Propranolol 20 MG Tab PO SCH ×2 (10:57→21:43)
[2022-03-21] MEDS: Warfarin 2.5 MG Tab PO SCH (16:41)
[2022-03-21] MEDS: Mineral Oil/Petrolatum Ophth Oint 3.5 GM Tube EYEBOTH SCH (21:43)
[2022-03-21] MEDS: cefTRIAXone 1 GM Vial IVPUSH SCH (21:45)
[2022-03-22 06:57] LABS: ESTIMATED GFR 61 mL/min (>60)
[2022-03-22] MEDS: Pantoprazole 40 MG Tab.CR PO SCH ×2 (07:06→17:15)
[2022-03-22] MEDS: Cholecalciferol (Vitamin D3) 25 MCG Tab PO SCH (08:38)
[2022-03-22] MEDS: Methimazole 5 MG Tab PO SCH (08:39)
[2022-03-22] MEDS: Acetaminophen 650 MG Tab.ER PO SCH ×3 (08:39→20:49)
[2022-03-22] MEDS: Lutein/Minerals/Vitamin C/Vitamin E Acetate Cap PO SCH (08:39)
[2022-03-22] MEDS: Propranolol 20 MG Tab PO SCH ×2 (08:39→20:48)
[2022-03-22] MEDS: Phytonadione 100 MCG Tab PO SCH (08:41)
[2022-03-22] MEDS: Doxycycline 100 MG Tab PO SCH ×2 (10:48→20:50)
[2022-03-22] MEDS: Warfarin 2.5 MG Tab PO SCH (16:37)
[2022-03-22] MEDS: Mineral Oil/Petrolatum Ophth Oint 3.5 GM Tube EYEBOTH SCH (20:48)
[2022-03-23] MEDS: Pantoprazole 40 MG Tab.CR PO SCH (06:32)
[2022-03-23] MEDS: Lutein/Minerals/Vitamin C/Vitamin E Acetate Cap PO SCH (09:07)
[2022-03-23] MEDS: Methimazole 5 MG Tab PO SCH (09:08)
[2022-03-23] MEDS: Propranolol 20 MG Tab PO SCH (09:09)
[2022-03-23] MEDS: Cholecalciferol (Vitamin D3) 25 MCG Tab PO SCH (09:10)
[2022-03-23] MEDS: Doxycycline 100 MG Tab PO SCH (09:10)
[2022-03-23] MEDS: Phytonadione 100 MCG Tab PO SCH (09:10)
[2022-03-23] MEDS: Acetaminophen 650 MG Tab.ER PO SCH ×2 (09:12→13:48)
[2022-03-23 12:00] VITALS: BP 116/74; PULSE 80
== END 2022-03-23 15:00 | disposition home health service (06) | DRG 194 ==
LOC: FB.ED 16:21 → FB.MS 20:19 → OBSVTOIN 03-20 09:45
PROVIDERS: ADMIT Family Medicine; ATTEND Family Medicine
DX: J18.9 Pneumonia, unspecified organism (principal); I50.32 Chronic diastolic (congestive) heart failure; R53.1 Weakness; I48.91 Unspecified atrial fibrillation; M19.90 Unspecified osteoarthritis, unspecified site; E03.9 Hypothyroidism, unspecified; E05.90 Thyrotoxicosis, unspecified without thyrotoxic crisis or storm; Z85.3 Personal history of malignant neoplasm of breast; W19.XXXA Unspecified fall, initial encounter; E05.00 Thyrotoxicosis with diffuse goiter without thyrotoxic crisis or storm; M81.0 Age-related osteoporosis without current pathological fracture; R06.02 Shortness of breath; I11.0 Hypertensive heart disease with heart failure; H54.7 Unspecified visual loss; Z66 Do not resuscitate; Z20.822 Contact with and (suspected) exposure to COVID-19; E78.00 Pure hypercholesterolemia, unspecified; Z96.641 Presence of right artificial hip joint; Z79.01 Long term (current) use of anticoagulants; Z79.899 Other long term (current) drug therapy; Z90.49 Acquired absence of other specified parts of digestive tract; Z90.13 Acquired absence of bilateral breasts and nipples; Z90.710 Acquired absence of both cervix and uterus; Z91.012 Allergy to eggs
CPT/HCPCS: 36415 ×2; 70450; 71045; 73560; 80048; 80053; 81001; 83605; 83735 ×2; 83880; 84484 ×3; 85025 ×2; 85610; 86140; 87040 ×2; 93005; A9270 ×2; C9113 ×2; J0696; J3475; J3490 ×8; J7040; U0002; 71046; 84443; 93010; 97166-GO; 99285

== ENCOUNTER 2022-04-03 17:14 | Inpatient (IN) | payer MEDICARE ==
[2022-04-03] MEDS ORDERED: Diltiazem 25 MG/5 ML SDV IVPUSH ONE (17:22)
[2022-04-03 17:44] LABS: ESTIMATED GFR 33 mL/min (>60)
[2022-04-03] MEDS: Sodium Chloride 0.9% 10 ML Syringe FLUSH PRN ×2 (17:56→22:44)
[2022-04-03] MEDS ORDERED: Ondansetron 4 MG/2 ML SDV IV PRN (18:45)
[2022-04-03] MEDS ORDERED: Loperamide 2 MG Cap PO PRN (18:58)
[2022-04-03] MEDS ORDERED: Fluticasone NASAL Spray 16 GM Bottle NASBOTH PRN (18:58)
[2022-04-03] MEDS ORDERED: Loratadine 10 MG Tab PO PRN (18:58)
[2022-04-03] MEDS: Diltiazem 120 MG Cap.CD PO SCH (19:45)
[2022-04-03] MEDS: Propranolol 20 MG Tab PO SCH (20:38)
[2022-04-03] MEDS: Acetaminophen 650 MG Tab.ER PO SCH (20:39)
[2022-04-03] MEDS ORDERED: Labetalol 20 MG/4 ML Syringe IVPUSH PRN (21:55)
[2022-04-03] MEDS ORDERED: Furosemide 40 MG/4 ML VIAL IVPUSH ONE (22:33)
[2022-04-03] MEDS ORDERED: Digoxin 500 MCG/2 ML Amp IVPUSH ONE (22:37)
[2022-04-04] MEDS: Pantoprazole 40 MG Tab.CR PO SCH (06:29)
[2022-04-04 07:15] LABS: ESTIMATED GFR 43 mL/min (>60)
[2022-04-04] MEDS ORDERED: Non-Formulary Medication 1 Each (Omeprazole [Omeprazole] 20 MG Cap.Sr) PO SCH (07:30)
[2022-04-04] MEDS ORDERED: [UNRECOGNIZED DRUG - REMARK] SCH (09:00)
[2022-04-04] MEDS ORDERED: Furosemide 20 MG/2 ML VIAL IVPUSH ONE (09:13)
[2022-04-04] MEDS: Propranolol 20 MG Tab PO SCH ×2 (09:36→16:47)
[2022-04-04] MEDS: Diltiazem 240 MG Cap.ER PO SCH (09:37)
[2022-04-04] MEDS: Cholecalciferol (Vitamin D3) 25 MCG Tab PO SCH (09:37)
[2022-04-04] MEDS: Potassium Chloride 20 MEQ Tab.ER PO SCH (09:37)
[2022-04-04] MEDS: Acetaminophen 650 MG Tab.ER PO SCH ×3 (09:37→20:28)
[2022-04-04] MEDS: Beta-Carotene (Vitamin A) w/Vitamin C & E plus Minerals Tab PO SCH (09:38)
[2022-04-04] MEDS: Methimazole 5 MG Tab PO SCH (09:38)
[2022-04-04] MEDS: Phytonadione 100 MCG Tab PO SCH (09:39)
[2022-04-04] MEDS: Sodium Chloride 0.9% 10 ML Syringe FLUSH PRN (09:42)
[2022-04-04] MEDS: Diltiazem 120 MG Cap.CD PO SCH (09:44)
[2022-04-04] MEDS ORDERED: Warfarin 2.5 MG Tab PO ONE (16:00)
[2022-04-04] MEDS ORDERED: Warfarin 2.5 MG Tab PO SCH (18:58)
[2022-04-04] MEDS ORDERED: Propranolol 10 MG Tab PO SCH (21:00)
[2022-04-04] MEDS: Diclofenac Sodium 1% Gel 100 GM Tube TOP PRN (21:52)
[2022-04-05] MEDS: Pantoprazole 40 MG Tab.CR PO SCH (06:01)
[2022-04-05 06:23] LABS: ESTIMATED GFR 48 mL/min (>60)
[2022-04-05] MEDS: Diltiazem 240 MG Cap.ER PO SCH (08:52)
[2022-04-05] MEDS: Acetaminophen 650 MG Tab.ER PO SCH ×3 (08:52→20:37)
[2022-04-05] MEDS: Potassium Chloride 20 MEQ Tab.ER PO SCH (08:53)
[2022-04-05] MEDS: Beta-Carotene (Vitamin A) w/Vitamin C & E plus Minerals Tab PO SCH (08:53)
[2022-04-05] MEDS: Phytonadione 100 MCG Tab PO SCH (08:53)
[2022-04-05] MEDS: Methimazole 5 MG Tab PO SCH (08:53)
[2022-04-05] MEDS: Cholecalciferol (Vitamin D3) 25 MCG Tab PO SCH (08:53)
[2022-04-05] MEDS ORDERED: Digoxin 500 MCG/2 ML Amp IVPUSH SCH (09:15)
[2022-04-05] MEDS ORDERED: Digoxin 500 MCG/2 ML Amp IVPUSH ONE (09:38)
[2022-04-05] MEDS: Sodium Chloride 0.9% 10 ML Syringe FLUSH PRN (10:00)
[2022-04-05] MEDS: Diclofenac Sodium 1% Gel 100 GM Tube TOP PRN (13:42)
[2022-04-05] MEDS ORDERED: Warfarin 2.5 MG Tab PO ONE (16:00)
[2022-04-06] MEDS: Pantoprazole 40 MG Tab.CR PO SCH (05:30)
[2022-04-06 06:50] LABS: ESTIMATED GFR 61 mL/min (>60)
[2022-04-06] MEDS: Metolazone 2.5 MG Tab PO SCH (08:53)
[2022-04-06] MEDS: Beta-Carotene (Vitamin A) w/Vitamin C & E plus Minerals Tab PO SCH (08:53)
[2022-04-06] MEDS: Methimazole 5 MG Tab PO SCH (08:53)
[2022-04-06] MEDS: Acetaminophen 650 MG Tab.ER PO SCH ×3 (08:53→20:27)
[2022-04-06] MEDS: Potassium Chloride 20 MEQ Tab.ER PO SCH (08:53)
[2022-04-06] MEDS: Phytonadione 100 MCG Tab PO SCH (08:53)
[2022-04-06] MEDS: Cholecalciferol (Vitamin D3) 25 MCG Tab PO SCH (08:53)
[2022-04-06] MEDS: Diltiazem 240 MG Cap.ER PO SCH (08:53)
[2022-04-06] MEDS: Betamethasone Dipropionate/Clotrimazole 0.05-1% Crm 15 GM Tube TOP SCH ×2 (09:33→20:25)
[2022-04-06] MEDS: Digoxin 500 MCG/2 ML Amp IVPUSH SCH (10:06)
[2022-04-06] MEDS: Sodium Chloride 0.9% 10 ML Syringe FLUSH PRN ×2 (10:09→16:59)
[2022-04-06] MEDS: Furosemide 20 MG/2 ML VIAL IVPUSH SCH ×2 (10:09→16:48)
[2022-04-06] MEDS ORDERED: Warfarin 2.5 MG Tab PO SCH (16:00)
[2022-04-06] MEDS: Mineral Oil/Petrolatum Ophth Oint 3.5 GM Tube EYEBOTH SCH (20:23)
[2022-04-06] MEDS: Diltiazem 120 MG Cap.CD PO SCH (20:26)
[2022-04-07] MEDS: Pantoprazole 40 MG Tab.CR PO SCH (05:38)
[2022-04-07 06:32] LABS: ESTIMATED GFR 54 mL/min (>60)
[2022-04-07] MEDS: Diltiazem 240 MG Cap.ER PO SCH (08:37)
[2022-04-07] MEDS: Potassium Chloride 20 MEQ Tab.ER PO SCH (08:38)
[2022-04-07] MEDS: Betamethasone Dipropionate/Clotrimazole 0.05-1% Crm 15 GM Tube TOP SCH ×2 (08:39→20:38)
[2022-04-07] MEDS: Methimazole 5 MG Tab PO SCH (08:44)
[2022-04-07] MEDS: Acetaminophen 650 MG Tab.ER PO SCH ×3 (08:45→20:40)
[2022-04-07] MEDS: Cholecalciferol (Vitamin D3) 25 MCG Tab PO SCH (08:47)
[2022-04-07] MEDS: Beta-Carotene (Vitamin A) w/Vitamin C & E plus Minerals Tab PO SCH (08:49)
[2022-04-07] MEDS: Phytonadione 100 MCG Tab PO SCH (08:51)
[2022-04-07] MEDS: Furosemide 20 MG/2 ML VIAL IVPUSH SCH (08:58)
[2022-04-07] MEDS: Digoxin 500 MCG/2 ML Amp IVPUSH SCH (09:11)
[2022-04-07] MEDS: Furosemide 20 MG Tab PO SCH ×2 (09:13→14:14)
[2022-04-07] MEDS: Digoxin 125 MCG Tab PO SCH (11:05)
[2022-04-07] MEDS ORDERED: Warfarin 2.5 MG Tab PO SCH (16:00)
[2022-04-07] MEDS: Diltiazem 120 MG Cap.CD PO SCH (20:30)
[2022-04-07] MEDS: Mineral Oil/Petrolatum Ophth Oint 3.5 GM Tube EYEBOTH SCH (20:37)
[2022-04-08] MEDS: Pantoprazole 40 MG Tab.CR PO SCH (06:04)
[2022-04-08 06:54] LABS: ESTIMATED GFR 54 mL/min (>60)
[2022-04-08] MEDS: Digoxin 125 MCG Tab PO SCH (08:30)
[2022-04-08] MEDS: Potassium Chloride 20 MEQ Tab.ER PO SCH (08:30)
[2022-04-08] MEDS: Diltiazem 240 MG Cap.ER PO SCH (08:30)
[2022-04-08] MEDS: Betamethasone Dipropionate/Clotrimazole 0.05-1% Crm 15 GM Tube TOP SCH ×2 (08:31→20:15)
[2022-04-08] MEDS: Cholecalciferol (Vitamin D3) 25 MCG Tab PO SCH (08:32)
[2022-04-08] MEDS: Beta-Carotene (Vitamin A) w/Vitamin C & E plus Minerals Tab PO SCH (08:32)
[2022-04-08] MEDS: Acetaminophen 650 MG Tab.ER PO SCH ×3 (08:32→20:16)
[2022-04-08] MEDS: Methimazole 5 MG Tab PO SCH (08:32)
[2022-04-08] MEDS: Metolazone 2.5 MG Tab PO SCH (08:33)
[2022-04-08] MEDS: Phytonadione 100 MCG Tab PO SCH (08:33)
[2022-04-08] MEDS: Furosemide 20 MG Tab PO SCH ×2 (09:40→13:52)
[2022-04-08] MEDS: Diclofenac Sodium 1% Gel 100 GM Tube TOP PRN (20:13)
[2022-04-08] MEDS: Diltiazem 120 MG Cap.CD PO SCH (20:14)
[2022-04-08] MEDS: Mineral Oil/Petrolatum Ophth Oint 3.5 GM Tube EYEBOTH SCH (20:15)
[2022-04-09] MEDS: Pantoprazole 40 MG Tab.CR PO SCH (06:53)
[2022-04-09] MEDS: Furosemide 20 MG Tab PO SCH (08:13)
[2022-04-09] MEDS: Cholecalciferol (Vitamin D3) 25 MCG Tab PO SCH (08:13)
[2022-04-09] MEDS: Digoxin 125 MCG Tab PO SCH (08:13)
[2022-04-09] MEDS: Potassium Chloride 20 MEQ Tab.ER PO SCH (08:21)
[2022-04-09] MEDS: Methimazole 5 MG Tab PO SCH (08:22)
[2022-04-09] MEDS: Betamethasone Dipropionate/Clotrimazole 0.05-1% Crm 15 GM Tube TOP SCH (08:22)
[2022-04-09] MEDS: Beta-Carotene (Vitamin A) w/Vitamin C & E plus Minerals Tab PO SCH (08:22)
[2022-04-09] MEDS: Acetaminophen 650 MG Tab.ER PO SCH (08:23)
[2022-04-09] MEDS: Phytonadione 100 MCG Tab PO SCH (08:26)
[2022-04-09] MEDS: Diclofenac Sodium 1% Gel 100 GM Tube TOP PRN (08:30)
[2022-04-09] MEDS: Diltiazem 240 MG Cap.ER PO SCH (09:19)
[2022-04-09 11:11] VITALS: BP 106/60; PULSE 72
== END 2022-04-09 12:45 | disposition swing bed (61) | DRG 308 ==
LOC: FB.ED 17:14 → FB.MS 18:48
PROVIDERS: ADMIT Emergency Medicine; ATTEND Family Medicine
DX: I13.0 Hypertensive heart and chronic kidney disease with heart failure and stage 1 through stage 4 chronic kidney disease, or unspecified chronic kidney disease (principal); I48.91 Unspecified atrial fibrillation; N18.9 Chronic kidney disease, unspecified; R53.1 Weakness; I50.33 Acute on chronic diastolic (congestive) heart failure; E05.00 Thyrotoxicosis with diffuse goiter without thyrotoxic crisis or storm; Z51.5 Encounter for palliative care; N18.31 Chronic kidney disease, stage 3a; E03.9 Hypothyroidism, unspecified; E05.90 Thyrotoxicosis, unspecified without thyrotoxic crisis or storm; H54.7 Unspecified visual loss; H91.90 Unspecified hearing loss, unspecified ear; E78.00 Pure hypercholesterolemia, unspecified; K21.9 Gastro-esophageal reflux disease without esophagitis; M19.90 Unspecified osteoarthritis, unspecified site; Z96.641 Presence of right artificial hip joint; Z88.1 Allergy status to other antibiotic agents; Z91.012 Allergy to eggs; Z79.899 Other long term (current) drug therapy; Z79.01 Long term (current) use of anticoagulants; Z85.3 Personal history of malignant neoplasm of breast; Z90.49 Acquired absence of other specified parts of digestive tract; Z90.710 Acquired absence of both cervix and uterus; Z90.13 Acquired absence of bilateral breasts and nipples
CPT/HCPCS: 36415; 71045; 80053; 83880; 84484; 85025; 85610; 93005; 93010; 96374; 99285 ×2; J3490 ×2; 51702; 80048; 84439; 84443; 97116-GP; 97161-GP; 97166-GO; 97530-GO; 97530-GP; 97535-GO; A9270-GY; J1160; J1940

== ENCOUNTER 2022-04-09 11:19 | Inpatient (IN) | payer MEDICARE ==
[2022-04-09] MEDS ORDERED: Loratadine 10 MG Tab PO PRN (13:24)
[2022-04-09] MEDS ORDERED: Loperamide 2 MG Cap PO PRN (13:24)
[2022-04-09] MEDS ORDERED: Fluticasone NASAL Spray 16 GM Bottle NASBOTH PRN (13:24)
[2022-04-09] MEDS ORDERED: Warfarin Sliding Scale PO SCH (13:30)
[2022-04-09] MEDS: Furosemide 20 MG Tab PO SCH (14:59)
[2022-04-09] MEDS: Acetaminophen 650 MG Tab.ER PO SCH ×2 (15:12→20:46)
[2022-04-09] MEDS: Diltiazem 120 MG Cap.CD PO SCH (20:45)
[2022-04-09] MEDS: Mineral Oil/Petrolatum Ophth Oint 3.5 GM Tube EYEBOTH SCH (20:46)
[2022-04-09] MEDS: Betamethasone Dipropionate/Clotrimazole 0.05-1% Crm 15 GM Tube TOP SCH (20:46)
[2022-04-09] MEDS: Diclofenac Sodium 1% Gel 100 GM Tube TOP PRN (20:47)
[2022-04-10] MEDS: Metolazone 2.5 MG Tab PO SCH (06:30)
[2022-04-10] MEDS: Pantoprazole 40 MG Tab.CR PO SCH (06:30)
[2022-04-10] MEDS: Furosemide 20 MG Tab PO SCH ×2 (08:47→13:37)
[2022-04-10] MEDS: Diltiazem 240 MG Cap.ER PO SCH (08:47)
[2022-04-10] MEDS: Potassium Chloride 20 MEQ Tab.ER PO SCH (08:48)
[2022-04-10] MEDS: Digoxin 125 MCG Tab PO SCH (08:48)
[2022-04-10] MEDS: Methimazole 5 MG Tab PO SCH (08:49)
[2022-04-10] MEDS: Beta-Carotene (Vitamin A) w/Vitamin C & E plus Minerals Tab PO SCH (08:50)
[2022-04-10] MEDS: Acetaminophen 650 MG Tab.ER PO SCH ×3 (08:50→20:53)
[2022-04-10] MEDS: Phytonadione 100 MCG Tab PO SCH (08:51)
[2022-04-10] MEDS: Cholecalciferol (Vitamin D3) 25 MCG Tab PO SCH (08:51)
[2022-04-10] MEDS: Betamethasone Dipropionate/Clotrimazole 0.05-1% Crm 15 GM Tube TOP SCH ×2 (08:59→20:56)
[2022-04-10] MEDS ORDERED: Warfarin 2.5 MG Tab PO ONE (16:00)
[2022-04-10] MEDS: Diltiazem 120 MG Cap.CD PO SCH (20:54)
[2022-04-10] MEDS: Mineral Oil/Petrolatum Ophth Oint 3.5 GM Tube EYEBOTH SCH (20:55)
[2022-04-11] MEDS: Pantoprazole 40 MG Tab.CR PO SCH (05:38)
[2022-04-11] MEDS: Furosemide 20 MG Tab PO SCH ×2 (08:50→14:05)
[2022-04-11] MEDS: Potassium Chloride 20 MEQ Tab.ER PO SCH (08:52)
[2022-04-11] MEDS: Digoxin 125 MCG Tab PO SCH (08:52)
[2022-04-11] MEDS: Diltiazem 240 MG Cap.ER PO SCH (08:52)
[2022-04-11] MEDS: Betamethasone Dipropionate/Clotrimazole 0.05-1% Crm 15 GM Tube TOP SCH ×2 (08:53→20:48)
[2022-04-11] MEDS: Methimazole 5 MG Tab PO SCH (08:55)
[2022-04-11] MEDS: Beta-Carotene (Vitamin A) w/Vitamin C & E plus Minerals Tab PO SCH (08:55)
[2022-04-11] MEDS: Acetaminophen 650 MG Tab.ER PO SCH ×3 (08:56→20:49)
[2022-04-11] MEDS: Cholecalciferol (Vitamin D3) 25 MCG Tab PO SCH (08:56)
[2022-04-11] MEDS: Phytonadione 100 MCG Tab PO SCH (08:57)
[2022-04-11] MEDS ORDERED: Warfarin 2.5 MG Tab PO ONE (16:00)
[2022-04-11] MEDS: Mineral Oil/Petrolatum Ophth Oint 3.5 GM Tube EYEBOTH SCH (20:45)
[2022-04-11] MEDS: Diltiazem 120 MG Cap.CD PO SCH (20:50)
[2022-04-12] MEDS: Pantoprazole 40 MG Tab.CR PO SCH (05:04)
[2022-04-12] MEDS: Furosemide 20 MG Tab PO SCH ×2 (08:42→13:52)
[2022-04-12] MEDS: Diltiazem 240 MG Cap.ER PO SCH (08:43)
[2022-04-12] MEDS: Potassium Chloride 20 MEQ Tab.ER PO SCH (08:43)
[2022-04-12] MEDS: Digoxin 125 MCG Tab PO SCH (08:44)
[2022-04-12] MEDS: Methimazole 5 MG Tab PO SCH (08:45)
[2022-04-12] MEDS: Beta-Carotene (Vitamin A) w/Vitamin C & E plus Minerals Tab PO SCH (08:45)
[2022-04-12] MEDS: Acetaminophen 650 MG Tab.ER PO SCH ×3 (08:45→20:25)
[2022-04-12] MEDS: Phytonadione 100 MCG Tab PO SCH (08:46)
[2022-04-12] MEDS: Cholecalciferol (Vitamin D3) 25 MCG Tab PO SCH (08:46)
[2022-04-12] MEDS ORDERED: Warfarin 2.5 MG Tab PO ONE (16:00)
[2022-04-12] MEDS: Diltiazem 120 MG Cap.CD PO SCH (20:24)
[2022-04-12] MEDS: Mineral Oil/Petrolatum Ophth Oint 3.5 GM Tube EYEBOTH SCH (20:24)
[2022-04-13] MEDS: Pantoprazole 40 MG Tab.CR PO SCH (05:18)
[2022-04-13] MEDS: Metolazone 2.5 MG Tab PO SCH (06:35)
[2022-04-13] MEDS: Furosemide 20 MG Tab PO SCH ×2 (08:44→13:57)
[2022-04-13] MEDS: Potassium Chloride 20 MEQ Tab.ER PO SCH (08:45)
[2022-04-13] MEDS: Acetaminophen 650 MG Tab.ER PO SCH ×3 (08:45→21:52)
[2022-04-13] MEDS: Diltiazem 240 MG Cap.ER PO SCH (08:46)
[2022-04-13] MEDS: Digoxin 125 MCG Tab PO SCH (08:48)
[2022-04-13] MEDS: Beta-Carotene (Vitamin A) w/Vitamin C & E plus Minerals Tab PO SCH (08:49)
[2022-04-13] MEDS: Cholecalciferol (Vitamin D3) 25 MCG Tab PO SCH (08:49)
[2022-04-13] MEDS: Methimazole 5 MG Tab PO SCH (08:49)
[2022-04-13] MEDS: Phytonadione 100 MCG Tab PO SCH (08:50)
[2022-04-13] MEDS ORDERED: Warfarin 2.5 MG Tab PO ONE (16:00)
[2022-04-13] MEDS: Diltiazem 120 MG Cap.CD PO SCH (21:51)
[2022-04-13] MEDS: Mineral Oil/Petrolatum Ophth Oint 3.5 GM Tube EYEBOTH SCH (21:52)
[2022-04-14] MEDS: Pantoprazole 40 MG Tab.CR PO SCH (05:41)
[2022-04-14] MEDS: Potassium Chloride 20 MEQ Tab.ER PO SCH (08:18)
[2022-04-14] MEDS: Beta-Carotene (Vitamin A) w/Vitamin C & E plus Minerals Tab PO SCH (08:18)
[2022-04-14] MEDS: Phytonadione 100 MCG Tab PO SCH (08:18)
[2022-04-14] MEDS: Methimazole 5 MG Tab PO SCH (08:18)
[2022-04-14] MEDS: Furosemide 20 MG Tab PO SCH ×2 (08:18→13:36)
[2022-04-14] MEDS: Cholecalciferol (Vitamin D3) 25 MCG Tab PO SCH (08:19)
[2022-04-14] MEDS: Digoxin 125 MCG Tab PO SCH (08:19)
[2022-04-14] MEDS: Acetaminophen 650 MG Tab.ER PO SCH ×3 (08:20→20:29)
[2022-04-14] MEDS: Diltiazem 240 MG Cap.ER PO SCH (08:20)
[2022-04-14] MEDS: Warfarin 2.5 MG Tab PO SCH (15:33)
[2022-04-14] MEDS: Diltiazem 120 MG Cap.CD PO SCH (20:27)
[2022-04-14] MEDS: Mineral Oil/Petrolatum Ophth Oint 3.5 GM Tube EYEBOTH SCH (20:28)
[2022-04-15] MEDS: Pantoprazole 40 MG Tab.CR PO SCH (05:10)
[2022-04-15] MEDS: Metolazone 2.5 MG Tab PO SCH (06:31)
[2022-04-15] MEDS: Acetaminophen 650 MG Tab.ER PO SCH ×3 (08:26→21:00)
[2022-04-15] MEDS: Furosemide 20 MG Tab PO SCH ×2 (08:27→15:00)
[2022-04-15] MEDS: Methimazole 5 MG Tab PO SCH (08:27)
[2022-04-15] MEDS: Phytonadione 100 MCG Tab PO SCH (08:27)
[2022-04-15] MEDS: Cholecalciferol (Vitamin D3) 25 MCG Tab PO SCH (08:27)
[2022-04-15] MEDS: Beta-Carotene (Vitamin A) w/Vitamin C & E plus Minerals Tab PO SCH (08:27)
[2022-04-15] MEDS: Potassium Chloride 20 MEQ Tab.ER PO SCH (08:27)
[2022-04-15] MEDS: Diltiazem 240 MG Cap.ER PO SCH (08:28)
[2022-04-15] MEDS: Digoxin 125 MCG Tab PO SCH (08:32)
[2022-04-15] MEDS: Warfarin 2.5 MG Tab PO SCH (16:23)
[2022-04-15] MEDS: Mineral Oil/Petrolatum Ophth Oint 3.5 GM Tube EYEBOTH SCH (21:00)
[2022-04-15] MEDS: Diclofenac Sodium 1% Gel 100 GM Tube TOP PRN (21:02)
[2022-04-15] MEDS: Diltiazem 120 MG Cap.CD PO SCH (21:08)
[2022-04-16] MEDS: Pantoprazole 40 MG Tab.CR PO SCH (05:06)
[2022-04-16 05:12] VITALS: BP 117/52; PULSE 85
[2022-04-16] MEDS: Furosemide 20 MG Tab PO SCH ×2 (08:37→13:32)
[2022-04-16] MEDS: Diltiazem 240 MG Cap.ER PO SCH (08:40)
[2022-04-16] MEDS: Digoxin 125 MCG Tab PO SCH (08:42)
[2022-04-16] MEDS: Potassium Chloride 20 MEQ Tab.ER PO SCH (08:42)
[2022-04-16] MEDS: Methimazole 5 MG Tab PO SCH (08:43)
[2022-04-16] MEDS: Beta-Carotene (Vitamin A) w/Vitamin C & E plus Minerals Tab PO SCH (08:43)
[2022-04-16] MEDS: Phytonadione 100 MCG Tab PO SCH (08:44)
[2022-04-16] MEDS: Cholecalciferol (Vitamin D3) 25 MCG Tab PO SCH (08:44)
[2022-04-16] MEDS: Acetaminophen 650 MG Tab.ER PO SCH ×2 (08:44→13:32)
== END 2022-04-16 13:35 | disposition home health service (06) | DRG 948 ==
LOC: FB.MS 12:45
PROVIDERS: ADMIT Family Medicine; ATTEND Student in an Organized Health Care Education/Training Program
DX: R53.1 Weakness (principal); I13.0 Hypertensive heart and chronic kidney disease with heart failure and stage 1 through stage 4 chronic kidney disease, or unspecified chronic kidney disease; E05.00 Thyrotoxicosis with diffuse goiter without thyrotoxic crisis or storm; I48.91 Unspecified atrial fibrillation; I50.9 Heart failure, unspecified; Z51.5 Encounter for palliative care; M40.204 Unspecified kyphosis, thoracic region; H91.90 Unspecified hearing loss, unspecified ear; H54.7 Unspecified visual loss; E78.00 Pure hypercholesterolemia, unspecified; Z96.643 Presence of artificial hip joint, bilateral; N18.9 Chronic kidney disease, unspecified; M19.90 Unspecified osteoarthritis, unspecified site; K21.9 Gastro-esophageal reflux disease without esophagitis; Z87.440 Personal history of urinary (tract) infections; Z85.3 Personal history of malignant neoplasm of breast; Z86.19 Personal history of other infectious and parasitic diseases; Z88.1 Allergy status to other antibiotic agents; Z91.012 Allergy to eggs; Z79.01 Long term (current) use of anticoagulants; Z79.899 Other long term (current) drug therapy; Z98.49 Cataract extraction status, unspecified eye; Z90.49 Acquired absence of other specified parts of digestive tract; Z90.710 Acquired absence of both cervix and uterus; Z90.13 Acquired absence of bilateral breasts and nipples
CPT/HCPCS: 36415; 85610; 97112-GP; 97116-GP; 97530-GO; 97530-GP; 97535-GO; A9270-GY

== ENCOUNTER 2022-09-14 15:28 | Observation (INO) | payer MEDICARE ==
[2022-09-14] MEDS ORDERED: Carboxymethylcellulose Sodium 0.5% Ophth Soln 15 ML Bottle EYEBOTH PRN (16:26)
[2022-09-14] MEDS ORDERED: Warfarin Sliding Scale PO SCH (16:30)
[2022-09-14 16:34] LABS: ESTIMATED GFR 54 mL/min (>60)
[2022-09-14] MEDS ORDERED: Warfarin 2.5 MG Tab PO ONE (17:00)
[2022-09-14] MEDS ORDERED: Pantoprazole 40 MG Tab.CR PO ONE (17:00)
[2022-09-14] MEDS: Acetaminophen 650 MG Tab.ER PO SCH ×2 (18:19→20:36)
[2022-09-14] MEDS: Sodium Chloride 0.9% 10 ML Syringe FLUSH PRN ×2 (18:30→18:40)
[2022-09-14] MEDS: Furosemide 40 MG/4 ML VIAL IVPUSH SCH (18:35)
[2022-09-15 06:41] LABS: ESTIMATED GFR 54 mL/min (>60)
[2022-09-15] MEDS ORDERED: Metolazone 2.5 MG Tab PO ONE (08:15)
[2022-09-15] MEDS: Furosemide 40 MG/4 ML VIAL IVPUSH SCH ×2 (09:27→14:54)
[2022-09-15] MEDS: Methimazole 5 MG Tab PO SCH (11:38)
[2022-09-15] MEDS: Digoxin 125 MCG Tab PO SCH (11:38)
[2022-09-15] MEDS: Potassium Chloride 20 MEQ Tab.ER PO SCH (11:39)
[2022-09-15] MEDS: Diltiazem 240 MG Cap.ER PO SCH (11:39)
[2022-09-15] MEDS: Acetaminophen 650 MG Tab.ER PO SCH ×3 (11:40→20:16)
[2022-09-15] MEDS: Pantoprazole 40 MG Tab.CR PO SCH ×2 (11:40→17:00)
[2022-09-16 07:00] LABS: ESTIMATED GFR 43 mL/min (>60)
[2022-09-16] MEDS: Methimazole 5 MG Tab PO SCH (08:41)
[2022-09-16] MEDS: Potassium Chloride 20 MEQ Tab.ER PO SCH (08:41)
[2022-09-16] MEDS: Pantoprazole 40 MG Tab.CR PO SCH ×2 (08:41→18:07)
[2022-09-16] MEDS: Acetaminophen 650 MG Tab.ER PO SCH ×3 (08:41→20:18)
[2022-09-16] MEDS: Digoxin 125 MCG Tab PO SCH (08:42)
[2022-09-16] MEDS: Diltiazem 240 MG Cap.ER PO SCH (08:43)
[2022-09-16] MEDS: Sodium Chloride 0.9% 10 ML Syringe FLUSH PRN (08:43)
[2022-09-16] MEDS: Furosemide 40 MG/4 ML VIAL IVPUSH SCH ×2 (08:43→16:12)
[2022-09-16] MEDS: Furosemide 40 MG Tab PO SCH (15:21)
[2022-09-16] MEDS ORDERED: Warfarin 2.5 MG Tab PO SCH (16:00)
[2022-09-17] MEDS: Pantoprazole 40 MG Tab.CR PO SCH (06:30)
[2022-09-17 06:39] LABS: ESTIMATED GFR 43 mL/min (>60)
[2022-09-17] MEDS: Furosemide 40 MG Tab PO SCH (08:57)
[2022-09-17] MEDS: Digoxin 125 MCG Tab PO SCH (08:57)
[2022-09-17] MEDS: Potassium Chloride 20 MEQ Tab.ER PO SCH (08:58)
[2022-09-17] MEDS: Acetaminophen 650 MG Tab.ER PO SCH (08:58)
[2022-09-17] MEDS: Diltiazem 240 MG Cap.ER PO SCH (08:58)
[2022-09-17] MEDS: Methimazole 5 MG Tab PO SCH (08:58)
[2022-09-17 12:57] VITALS: BP 106/63; PULSE 72
== END 2022-09-17 12:30 | disposition home or self-care (01) ==
LOC: FB.MS 15:28 → UNDOADMOB 15:28 → FB.MS 15:34
PROVIDERS: ADMIT Family Medicine; ATTEND Family Medicine
DX: R53.1 Weakness (principal); I13.0 Hypertensive heart and chronic kidney disease with heart failure and stage 1 through stage 4 chronic kidney disease, or unspecified chronic kidney disease; I50.33 Acute on chronic diastolic (congestive) heart failure; N18.31 Chronic kidney disease, stage 3a; E05.00 Thyrotoxicosis with diffuse goiter without thyrotoxic crisis or storm; I83.11 Varicose veins of right lower extremity with inflammation; I83.12 Varicose veins of left lower extremity with inflammation; L60.3 Nail dystrophy; E78.00 Pure hypercholesterolemia, unspecified; I48.91 Unspecified atrial fibrillation; K21.9 Gastro-esophageal reflux disease without esophagitis; E03.9 Hypothyroidism, unspecified; M19.90 Unspecified osteoarthritis, unspecified site; Z78.9 Other specified health status; Z51.5 Encounter for palliative care; Z79.899 Other long term (current) drug therapy; Z79.01 Long term (current) use of anticoagulants; Z88.1 Allergy status to other antibiotic agents; Z91.012 Allergy to eggs; Z90.49 Acquired absence of other specified parts of digestive tract; Z98.890 Other specified postprocedural states
CPT/HCPCS: 36415; 71045; 80048; 80053; 80162; 81001; 83735; 83880; 85025; 85610; 96374; 96376; 97116-GP; 97161-GP; 97165-GO; 97530-GO; 97535-GO; 99222; 99232; 99238; A9270-GY; G0378; G0379; J1940; J3490